=== PATIENT | female | born 1965 | race Two or more races ===

== ENCOUNTER 2016-06-05 11:31 | Inpatient (IN) | payer OTHER ==
[2016-06-05 12:38] VITALS: BMI 16.2
--- NOTE | 2016-06-05 14:13 | HP ---
Admission ROS S - [facility] Chief Complaint: I need help to stop using crack. Allergies/Adverse Reactions: Allergies Allergy/AdvReac Type Severity Reaction Status Date / Time cephalexin monohydrate Allergy Severe Hives Verified 06/05/16 14:02 [From Keflex] Fish Containing Products Allergy Severe Hives Verified 06/05/16 14:02 History of Present Illness: 51 y/o f pt on mmtp using crack daily needs rehab. Exam Limitations: No Limitations - Ebola screening Have you traveled outside of the country in the last 21 days: No Have you had contact with anyone from an Ebola affected area: No Have you been sick,other than usual withdrawal symptoms: No Do you have a fever: No - Review of Systems Constitutional: Weakness EENT: reports: Blurred Vision Respiratory: reports: No Symptoms reported Cardiac: reports: No Symptoms Reported GI: reports: No Symptoms Reported : reports: No Symptoms Reported Musculoskeletal: reports: No Symptoms Reported Integumentary: reports: No Symptoms Reported Neuro: reports: No Symptoms reported Endocrine: reports: No Symptoms Reported Hematology: reports: No Symptoms Reported Psychiatric: reports: No Sypmtoms Reported Other Systems: Reviewed and Negative Patient History - Patient Medical History Hx Anemia: No Hx Asthma: Yes Hx Chronic Obstructive Pulmonary Disease (COPD): No Hx Cancer: No Hx Cardiac Disorders: No Hx Congestive Heart Failure: No Hx Hypertension: No Hx Hypercholesterolemia: No Hx Pacemaker: No HX Cerebrovascular Accident: No Hx Seizures: No Hx Dementia: No Hx Diabetes: No Hx Gastrointestinal Disorders: No Hx Liver Disease: No Hx Genitourinary Disorders: No Hx Sexually Transmitted Disorders: No Hx Renal Disease (ESRD): No Hx Thyroid Disease: No Hx Human Immunodeficiency Virus (HIV): Yes (2008) Hx Hepatitis C: No Hx Depression: Yes Hx Suicide Attempt: Yes (X5 TIMES) Hx Bipolar Disorder: No Hx Schizophrenia: Yes - Patient Surgical History Past Surgical History: No Hx Neurologic Surgery: No Hx Cataract Extraction: No Hx Cardiac Surgery: No Hx Lung Surgery: No Hx Breast Surgery: No Hx Breast Biopsy: No Hx Abdominal Surgery: No Hx Appendectomy: No Hx Cholecystectomy: No Hx Genitourinary Surgery: No Hx Section: No Hx Orthopedic Surgery: No Hx Hysterectomy: No - PPD History Date: 01/05/16 - Reproductive History Patient is a Female of Child Bearing Age (11 -55 yrs old): Yes Last Menstrual Period: 12/22/15 Patient : No - Smoking Cessation Smoking history: Current every day smoker Have you smoked in the past 12 months: Yes Aproximately how many cigarettes per day: 10 Cigars Per Day: 0 Hx Chewing Tobacco Use: No Initiated information on smoking cessation: Yes 'Breaking Loose' booklet given: 06/05/16 - Substance & Tx. History Hx Alcohol Use: No Hx Substance Use: Yes Substance Use Type: Cocaine Hx Substance Use Treatment: Yes - Substances Abused Crack Route: Smoking Frequency: Daily Amount used: 12 bags /d Age of first use: 48 Date of Last Use: 06/05/16 Family Disease History - Family Disease History Family History: Denies Admission Physical Exam [facility] - Vital Signs Vital Signs: Vital Signs - 24 hr 06/05/16 12:33 Temperature 96 F L Pulse Rate 75 Respiratory 20 Rate Blood Pressure 119/74 4 y/o cachetic appearing f pt aox3 in nad cooperative with exam. - Physical General Appearance: Yes: Appropriately Dressed, Disheveled, Cachetic, Anxious HEENTM: Yes: EOMI, Hearing grossly Normal, RAN, Muffled/Hoarse Voice Respiratory: Yes: Chest Non-Tender, Lungs Clear, Normal Breath Sounds, No Respiratory Distress Neck: Yes: Supple, Trachea in good position Breast: Yes: Within Normal Limits Cardiology: Yes: Regular Rhythm, Regular Rate Abdominal: Yes: Non Tender, Flat, Soft, Increased Bowel Sounds Genitourinary: Yes: Within Normal Limits Back: Yes: Within Normal Limits Musculoskeletal: Yes: Within Normal Limits Extremities: Yes: Within Normal Limits Neurological: Yes: paper maker II-XII NML intact, Fully Oriented, Motor Strength 5/5, Normal Response Integumentary: Yes: Within Normal Limits Lymphatic: Yes: Within Normal Limits - Diagnostic (1) Asthma Current Visit: Yes Status: Chronic Qualifiers: Asthma severity: mild intermittent Asthma complication type: with status asthmaticus Qualified Code(s): J45.22 - Mild intermittent asthma with status asthmaticus (2) Cocaine dependence Current Visit: Yes Status: Chronic Qualifiers: Substance use status: uncomplicated Qualified Code(s): F14.20 - Cocaine dependence, uncomplicated (3) Depression Current Visit: Yes Status: Chronic Qualifiers: Depression Type: dysthymia Qualified Code(s): F34.1 - Dysthymic disorder (4) HIV (human immunodeficiency virus infection) Current Visit: Yes Status: Chronic Comment: not taking arv > 2 months (5) Methadone maintenance therapy patient Current Visit: Yes Status: Chronic Comment: 80 MG LAST DOSE 01/03/16, VERIFICATION PENDING (6) Nicotine dependence Current Visit: No Status: Chronic Qualifiers: Nicotine product type: cigarettes Substance use status: uncomplicated Qualified Code(s): F17.210 - Nicotine dependence, cigarettes, uncomplicated (7) Weight loss Current Visit: Yes Status: Chronic Cleared for Admission S - Detox or Rehab Claeared for Rehab Admission: Yes [facility] Breath Alcohol Content Breath Alcohol Content: 0 Urine Pregancy Test - Result Urine Test Results: Negative- NO Line Present Urine Drug Screen - Results Drug Screen Negative: No Urine Drug Screen Results: VIRY-Cocaine, MTD-Methadone, TCA-Tricyclic Antidepress
[2016-06-05] MEDS ORDERED: NICOTINE POLACRILEX 4 MG GUM BC PRN (14:21)
[2016-06-05] MEDS ORDERED: LOPERAMIDE HCL 2 MG CAPSULE PO PRN (14:21)
[2016-06-05] MEDS ORDERED: ACETAMINOPHEN 325 MG TABLET (FP) PO PRN (14:21)
[2016-06-05] MEDS ORDERED: guaiFENesin/D-METHORPHAN HB 10 ML UNIT-DOSE CUPS PO PRN (14:21)
[2016-06-05] MEDS ORDERED: P-EPHED 60MG/TRIPROLIDI 2.5MG TABLET PO PRN (14:21)
[2016-06-05] MEDS ORDERED: MAGNESIUM CITRATE 300 ML BOTTLE PO PRN (14:21)
[2016-06-05] MEDS ORDERED: IBUPROFEN 400 MG TABLET (FP) PO PRN (14:21)
[2016-06-05] MEDS ORDERED: MENTHOL/PHENOL 1 EACH UD MM PRN (14:21)
--- NOTE | 2016-06-05 15:31 | HP ---
Psychiatrist Admission - Data Date of interview: 06/05/16 Admission source: [facility] Identifying data: This is the second admission to [address] [place] [address] for this 51 yo H single female mother of 2 adults,residing in [facility],supported by [facility]. Medical History: HIV+,dx in 2011,BA. Psychiatric History: Patient is poor historian.Repots that she was dx with Bipolar disorder about 9 years ago.She reports 10-15 psychiatric hospitalizations mostly due to severe depression,drug usage,suicidal gestures.Patient reports most recent admission about 5 months ago to [facility] for depression,suicidal ideas.Follow up by psychiatrist at [facility].Current medications:Zoloft,Abilify,Klonopin and SEroquel po hs.She stopped her psychotropics a few weeks ago and willing to restart it now. Physical/Sexual Abuse/Trauma History: denies Vital Signs: Vital Signs - 24 hr 06/05/16 12:33 Temperature 96 F L Pulse Rate 75 Respiratory 20 Rate Blood Pressure 119/74 Allergies/Adverse Reactions: Allergies Allergy/AdvReac Type Severity Reaction Status Date / Time cephalexin monohydrate Allergy Severe Hives Verified 06/05/16 14:02 [From Keflex] Fish Containing Products Allergy Severe Hives Verified 06/05/16 14:02 Date of last physical exam: 06/05/16 Concur with the findings of this exam: Yes - Substance Abuse/Tx History Hx Alcohol Use: No Hx Substance Use: Yes (crack since 2014 about 10 bags daily,heroin since 1984( on MMTP 70 mg)) Substance Use Type: Cocaine, Heroin Hx Substance Use Treatment: Yes (completed this program in Jan 2016) - Admission Criteria Previous failed treatment: Yes Poor recovery environment: Yes Comorbidities: Yes Lacks judgement: Yes Mental Status Exam - Mental Status Exam Alert and Oriented to: Time, Place, Person Cognitive Function: Grossly Intact Patient Appearance: Unkempt Mood: Anxious Affect: Labile Patient Behavior: Cooperative Speech Pattern: Clear Voice Loudness: Normal Thought Process: Goal Oriented Thought Disorder: Present Hallucinations: Denies Suicidal Ideation: Denies Homicidal Ideation: Denies Insight/Judgement: Fair Sleep: Fair Appetite: Fair, Weight loss Muscle strength/Tone: Normal Gait/Station: Normal Psychiatric Findings - Problem List (Moran 1, 2,3) (1) Asthma Current Visit: Yes Status: Chronic Qualifiers: Asthma severity: mild intermittent Asthma complication type: with status asthmaticus Qualified Code(s): J45.22 - Mild intermittent asthma with status asthmaticus (2) Cocaine dependence Current Visit: Yes Status: Chronic Qualifiers: Substance use status: uncomplicated Qualified Code(s): F14.20 - Cocaine dependence, uncomplicated (3) HIV (human immunodeficiency virus infection) Current Visit: Yes Status: Chronic Comment: not taking arv > 2 months (4) Methadone maintenance therapy patient Current Visit: Yes Status: Chronic Comment: 80 MG LAST DOSE 01/03/16, VERIFICATION PENDING (5) Bipolar I disorder Current Visit: Yes Status: Chronic (6) Nicotine dependence Current Visit: Yes Status: Chronic Qualifiers: Nicotine product type: cigarettes Substance use status: uncomplicated Qualified Code(s): F17.210 - Nicotine dependence, cigarettes, uncomplicated - Initial Treatment Plan Initial Treatment Plan: Restart Zoloft 100 mg po daily,Seroquel 50 mg po hs and Abilify 30 mg po daily.Will monitor progress.
[2016-06-05 18:46] LABS: URINE APPEARANCE CLOUDY; URINE BILIRUBIN NEGATIVE (NEGATIVE); URINE BLOOD NEGATIVE (NEGATIVE); URINE COLOR YELLOW; URINE GLUCOSE (UA) NEGATIVE (NEGATIVE); URINE KETONE NEGATIVE (NEGATIVE); URINE LEUK ESTERASE NEGATIVE (NEGATIVE); URINE NITRITE NEGATIVE (NEGATIVE); URINE PROTEIN NEGATIVE (NEGATIVE); URINE UROBILINOGEN NEGATIVE E.U./dl (0.2-1.0)
[2016-06-05 18:47] LABS: MCH 29.5 pg (25.7-33.7); MCHC 33.5 g/dl (32.0-36.0); MEAN PLT VOLUME 9.3 fl (7.5-11.1); PLATELET COUNT 209 K/MM3 (134-434); RDW 16.7 % (11.6-15.6); WHITE BLOOD COUNT 3.9 K/mm3 (4.0-10.0)
[2016-06-05 19:11] LABS: ALBUMIN 2.9 g/dl (3.4-5.0); ANION GAP 6 (8-16); BILIRUBIN,TOTAL 0.1 mg/dL (0.2-1.0); CALCIUM 8.3 mg/dL (8.5-10.1); CO2 31 mmol/L (21-32); CREATININE 0.9 mg/dL (0.55-1.02); GLUCOSE,RANDOM 88 mg/dL (74-106); SGOT/AST 20 U/L (15-37); SGPT/ALT 26 U/L (12-78); TOT PROT 6.4 g/dl (6.4-8.2)
[2016-06-05 19:12] LABS: ALK PHOS 80 U/L (45-117)
[2016-06-05] MEDS: QUEtiapine FUMARATE 50 MG TABLET PO SCH (22:14)
[2016-06-05] MEDS: THIAMINE HCL 100 MG TABLET (FP) PO SCH (22:14)
[2016-06-06] MEDS ORDERED: METHADONE HCL 10 MG TABLET PO ONE (07:50)
[2016-06-06] MEDS ORDERED: METHADONE 40 MG, METHADONE 30 MG PO ONE (08:00)
[2016-06-06] MEDS ORDERED: METHADONE HCL 40 MG DISPERSABLE TABLET ONE (08:01)
[2016-06-06] MEDS ORDERED: METHADONE HCL 10 MG TABLET ONE (08:01)
[2016-06-06] MEDS: PRENATAL VITAMINS W/ FOLIC ACID TABLET (FP) PO SCH (10:25)
[2016-06-06] MEDS: NICOTINE 21 MG/24 HOURS TOPICAL PATCH TD SCH (10:26)
[2016-06-06 12:00] LABS: HIV 1 AGp24 NEGATIVE
--- NOTE | 2016-06-06 13:29 | PN ---
[facility] Progress Note Note: Pt. was on isentress & truvada but stopped taking it because she was not feeling well. We'll refer pt. back to her ID clinic for a change in HARRT.
[2016-06-06 14:13] LABS: HIV 1 & 2 AB PRELIMINARY POSITIVE
[2016-06-06] MEDS: MEGESTROL ACETATE 400 MG/10 ML UNIT DOSE CUP PO SCH (16:30)
[2016-06-06] MEDS: THIAMINE HCL 100 MG TABLET (FP) PO SCH (21:27)
[2016-06-06] MEDS: QUEtiapine FUMARATE 50 MG TABLET PO SCH (21:28)
[2016-06-07] MEDS ORDERED: METHADONE HCL 40 MG DISPERSABLE TABLET ONE (05:38)
[2016-06-07] MEDS ORDERED: METHADONE HCL 10 MG TABLET ONE (05:38)
[2016-06-07] MEDS ORDERED: METHADONE HCL 10 MG TABLET PO SCH ×2 (06:00)
[2016-06-07] MEDS: METHADONE 40 MG, METHADONE 30 MG PO SCH (06:56)
[2016-06-07] MEDS: MEGESTROL ACETATE 400 MG/10 ML UNIT DOSE CUP PO SCH ×2 (06:57→17:04)
[2016-06-07] MEDS: PRENATAL VITAMINS W/ FOLIC ACID TABLET (FP) PO SCH (10:20)
[2016-06-07] MEDS: NICOTINE 21 MG/24 HOURS TOPICAL PATCH TD SCH (10:20)
--- NOTE | 2016-06-07 13:51 | EKG ---
Test Reason : Blood Pressure : / mmHG Vent. Rate : 080 BPM Atrial Rate : 087 BPM P-R Int : 134 ms QRS Dur : 088 ms QT Int : 420 ms P-R-T Axes : 080 089 082 degrees QTc Int : 484 ms NORMAL SINUS RHYTHM WITH SINUS ARRHYTHMIA T WAVE ABNORMALITY, CONSIDER ANTERIOR ISCHEMIA PROLONGED QT ABNORMAL ECG NO PREVIOUS ECGS AVAILABLE Confirmed by GARO LOPEZ MD ([id number]) on 06/07/2016 1:51:21 PM Referred By: Vandana Del Toro Confirmed By:GARO LOPEZ MD
--- NOTE | 2016-06-07 15:00 | PN ---
[facility] Progress Note Note: Pt. has multiple excoriations from scratching P : Bactracin oin't qid
[2016-06-07] MEDS: SERTRALINE HCL 50 MG TABLET (FP) PO SCH (15:10)
[2016-06-07] MEDS: ARIPiprazole 15 MG TABLET PO SCH (15:10)
[2016-06-07] MEDS: BACITRACIN 0.9 GM PACKET TP SCH ×2 (17:04→21:27)
[2016-06-07] MEDS: THIAMINE HCL 100 MG TABLET (FP) PO SCH (21:27)
[2016-06-07] MEDS: QUEtiapine FUMARATE 50 MG TABLET PO SCH (21:28)
[2016-06-07] MEDS: DOCUSATE SODIUM 100 MG CAPSULE (FP) PO SCH (21:28)
[2016-06-08] MEDS ORDERED: METHADONE HCL 10 MG TABLET ONE (03:09)
[2016-06-08] MEDS ORDERED: METHADONE HCL 40 MG DISPERSABLE TABLET ONE (03:10)
[2016-06-08] MEDS: METHADONE 40 MG, METHADONE 30 MG PO SCH (06:35)
[2016-06-08] MEDS: MEGESTROL ACETATE 400 MG/10 ML UNIT DOSE CUP PO SCH ×2 (06:36→17:03)
[2016-06-08] MEDS: NICOTINE 21 MG/24 HOURS TOPICAL PATCH TD SCH (10:21)
[2016-06-08] MEDS: BACITRACIN 0.9 GM PACKET TP SCH ×4 (10:21→21:17)
[2016-06-08] MEDS: PRENATAL VITAMINS W/ FOLIC ACID TABLET (FP) PO SCH (10:21)
[2016-06-08] MEDS: DOCUSATE SODIUM 100 MG CAPSULE (FP) PO SCH ×2 (10:22→21:17)
[2016-06-08] MEDS: ARIPiprazole 15 MG TABLET PO SCH (10:22)
[2016-06-08] MEDS: SERTRALINE HCL 50 MG TABLET (FP) PO SCH (10:22)
[2016-06-08] MEDS: THIAMINE HCL 100 MG TABLET (FP) PO SCH (21:17)
[2016-06-08] MEDS: QUEtiapine FUMARATE 50 MG TABLET PO SCH (21:17)
[2016-06-09] MEDS ORDERED: METHADONE HCL 40 MG DISPERSABLE TABLET ONE (03:18)
[2016-06-09] MEDS ORDERED: METHADONE HCL 10 MG TABLET ONE (03:18)
[2016-06-09] MEDS: METHADONE 40 MG, METHADONE 30 MG PO SCH (06:15)
[2016-06-09] MEDS: MEGESTROL ACETATE 400 MG/10 ML UNIT DOSE CUP PO SCH ×2 (06:16→17:53)
[2016-06-09] MEDS: PRENATAL VITAMINS W/ FOLIC ACID TABLET (FP) PO SCH (10:10)
[2016-06-09] MEDS: ARIPiprazole 15 MG TABLET PO SCH (10:10)
[2016-06-09] MEDS: NICOTINE 21 MG/24 HOURS TOPICAL PATCH TD SCH (10:10)
[2016-06-09] MEDS: SERTRALINE HCL 50 MG TABLET (FP) PO SCH (10:10)
[2016-06-09] MEDS: BACITRACIN 0.9 GM PACKET TP SCH ×4 (10:10→21:20)
[2016-06-09] MEDS: DOCUSATE SODIUM 100 MG CAPSULE (FP) PO SCH ×2 (10:12→21:20)
[2016-06-09] MEDS ORDERED: diphenhydrAMINE HCL 25 MG CAPSULE (FP) PO PRN (15:41)
[2016-06-09] MEDS: MAGNESIUM HYDROX 2400MG/30ML ORAL SUSPENSION 30 ML CUP PO PRN (19:15)
[2016-06-09] MEDS: THIAMINE HCL 100 MG TABLET (FP) PO SCH (21:20)
[2016-06-09] MEDS: QUEtiapine FUMARATE 50 MG TABLET PO SCH (21:21)
[2016-06-10] MEDS ORDERED: METHADONE HCL 10 MG TABLET ONE (05:46)
[2016-06-10] MEDS ORDERED: METHADONE HCL 40 MG DISPERSABLE TABLET ONE (05:47)
[2016-06-10] MEDS: MEGESTROL ACETATE 400 MG/10 ML UNIT DOSE CUP PO SCH ×2 (06:42→17:17)
[2016-06-10] MEDS: METHADONE 40 MG, METHADONE 30 MG PO SCH (06:42)
[2016-06-10] MEDS: BACITRACIN 0.9 GM PACKET TP SCH ×4 (10:05→21:33)
[2016-06-10] MEDS: NICOTINE 21 MG/24 HOURS TOPICAL PATCH TD SCH (10:06)
[2016-06-10] MEDS: ARIPiprazole 15 MG TABLET PO SCH (10:06)
[2016-06-10] MEDS: PRENATAL VITAMINS W/ FOLIC ACID TABLET (FP) PO SCH (10:06)
[2016-06-10] MEDS: DOCUSATE SODIUM 100 MG CAPSULE (FP) PO SCH ×2 (10:06→21:33)
[2016-06-10] MEDS: SERTRALINE HCL 50 MG TABLET (FP) PO SCH (10:06)
[2016-06-10] MEDS: THIAMINE HCL 100 MG TABLET (FP) PO SCH (21:33)
[2016-06-10] MEDS: QUEtiapine FUMARATE 50 MG TABLET PO SCH (21:33)
[2016-06-10] MEDS: diphenhydrAMINE HCL 50 MG CAPSULE PO PRN (21:34)
[2016-06-11] MEDS ORDERED: METHADONE HCL 10 MG TABLET ONE (05:54)
[2016-06-11] MEDS ORDERED: METHADONE HCL 40 MG DISPERSABLE TABLET ONE (05:54)
[2016-06-11] MEDS: MEGESTROL ACETATE 400 MG/10 ML UNIT DOSE CUP PO SCH ×2 (06:33→16:30)
[2016-06-11] MEDS: METHADONE 40 MG, METHADONE 30 MG PO SCH (06:34)
[2016-06-11] MEDS: ARIPiprazole 15 MG TABLET PO SCH (10:09)
[2016-06-11] MEDS: PRENATAL VITAMINS W/ FOLIC ACID TABLET (FP) PO SCH (10:09)
[2016-06-11] MEDS: DOCUSATE SODIUM 100 MG CAPSULE (FP) PO SCH ×2 (10:09→21:19)
[2016-06-11] MEDS: SERTRALINE HCL 50 MG TABLET (FP) PO SCH (10:09)
[2016-06-11] MEDS: BACITRACIN 0.9 GM PACKET TP SCH ×4 (10:10→21:19)
[2016-06-11] MEDS: NICOTINE 21 MG/24 HOURS TOPICAL PATCH TD SCH (10:10)
[2016-06-11] MEDS: QUEtiapine FUMARATE 50 MG TABLET PO SCH (21:19)
[2016-06-11] MEDS: THIAMINE HCL 100 MG TABLET (FP) PO SCH (21:19)
[2016-06-11] MEDS: diphenhydrAMINE HCL 50 MG CAPSULE PO PRN (21:20)
[2016-06-12] MEDS ORDERED: METHADONE HCL 10 MG TABLET ONE (05:56)
[2016-06-12] MEDS ORDERED: METHADONE HCL 40 MG DISPERSABLE TABLET ONE (05:56)
[2016-06-12] MEDS: MEGESTROL ACETATE 400 MG/10 ML UNIT DOSE CUP PO SCH ×2 (06:45→17:13)
[2016-06-12] MEDS: METHADONE 40 MG, METHADONE 30 MG PO SCH (06:46)
[2016-06-12] MEDS ORDERED: PT OWN MED DRAWER 7, Y5N ONE (08:45)
[2016-06-12] MEDS: NICOTINE 21 MG/24 HOURS TOPICAL PATCH TD SCH (10:23)
[2016-06-12] MEDS: ARIPiprazole 15 MG TABLET PO SCH (10:23)
[2016-06-12] MEDS: PRENATAL VITAMINS W/ FOLIC ACID TABLET (FP) PO SCH (10:24)
[2016-06-12] MEDS: BACITRACIN 0.9 GM PACKET TP SCH ×4 (10:24→21:11)
[2016-06-12] MEDS: DOCUSATE SODIUM 100 MG CAPSULE (FP) PO SCH ×2 (10:24→21:11)
[2016-06-12] MEDS: SERTRALINE HCL 50 MG TABLET (FP) PO SCH (10:24)
[2016-06-12] MEDS: QUEtiapine FUMARATE 50 MG TABLET PO SCH (21:11)
[2016-06-12] MEDS: THIAMINE HCL 100 MG TABLET (FP) PO SCH (21:12)
[2016-06-12] MEDS: diphenhydrAMINE HCL 50 MG CAPSULE PO PRN (21:13)
[2016-06-13] MEDS ORDERED: METHADONE HCL 10 MG TABLET ONE (05:48)
[2016-06-13] MEDS ORDERED: METHADONE HCL 40 MG DISPERSABLE TABLET ONE (05:48)
[2016-06-13] MEDS: MEGESTROL ACETATE 400 MG/10 ML UNIT DOSE CUP PO SCH ×2 (06:14→16:58)
[2016-06-13] MEDS: METHADONE 40 MG, METHADONE 30 MG PO SCH (06:14)
[2016-06-13] MEDS: ARIPiprazole 15 MG TABLET PO SCH (10:05)
[2016-06-13] MEDS: SERTRALINE HCL 50 MG TABLET (FP) PO SCH (10:05)
[2016-06-13] MEDS: PRENATAL VITAMINS W/ FOLIC ACID TABLET (FP) PO SCH (10:05)
[2016-06-13] MEDS: BACITRACIN 0.9 GM PACKET TP SCH ×4 (10:05→21:24)
[2016-06-13] MEDS: DOCUSATE SODIUM 100 MG CAPSULE (FP) PO SCH ×2 (10:05→21:24)
[2016-06-13] MEDS: NICOTINE 21 MG/24 HOURS TOPICAL PATCH TD SCH (10:06)
[2016-06-13] MEDS: diphenhydrAMINE HCL 50 MG CAPSULE PO PRN (21:24)
[2016-06-13] MEDS: THIAMINE HCL 100 MG TABLET (FP) PO SCH (21:24)
[2016-06-13] MEDS: QUEtiapine FUMARATE 50 MG TABLET PO SCH (21:24)
[2016-06-14] MEDS ORDERED: METHADONE HCL 40 MG DISPERSABLE TABLET ONE (06:02)
[2016-06-14] MEDS ORDERED: METHADONE HCL 10 MG TABLET ONE (06:02)
[2016-06-14] MEDS: METHADONE 40 MG, METHADONE 30 MG PO SCH (06:35)
[2016-06-14] MEDS: MEGESTROL ACETATE 400 MG/10 ML UNIT DOSE CUP PO SCH ×2 (06:36→18:59)
[2016-06-14] MEDS: DOCUSATE SODIUM 100 MG CAPSULE (FP) PO SCH ×2 (10:52→21:24)
[2016-06-14] MEDS: BACITRACIN 0.9 GM PACKET TP SCH ×4 (10:52→21:24)
[2016-06-14] MEDS: SERTRALINE HCL 50 MG TABLET (FP) PO SCH (10:52)
[2016-06-14] MEDS: PRENATAL VITAMINS W/ FOLIC ACID TABLET (FP) PO SCH (10:52)
[2016-06-14] MEDS: ARIPiprazole 15 MG TABLET PO SCH (10:53)
[2016-06-14] MEDS: NICOTINE 21 MG/24 HOURS TOPICAL PATCH TD SCH (10:53)
[2016-06-14] MEDS: MAG HYDROX/AL HYDROX/SIMETH 30 ML UNIT-DOSE CUP PO PRN (13:45)
[2016-06-14] MEDS: QUEtiapine FUMARATE 50 MG TABLET PO SCH (21:24)
[2016-06-14] MEDS: THIAMINE HCL 100 MG TABLET (FP) PO SCH (21:24)
[2016-06-15] MEDS ORDERED: METHADONE HCL 40 MG DISPERSABLE TABLET ONE (03:13)
[2016-06-15] MEDS ORDERED: METHADONE HCL 10 MG TABLET ONE (03:13)
[2016-06-15] MEDS: METHADONE 40 MG, METHADONE 30 MG PO SCH (06:36)
[2016-06-15] MEDS: MEGESTROL ACETATE 400 MG/10 ML UNIT DOSE CUP PO SCH ×2 (06:37→18:30)
[2016-06-15] MEDS: ARIPiprazole 15 MG TABLET PO SCH (10:18)
[2016-06-15] MEDS: PRENATAL VITAMINS W/ FOLIC ACID TABLET (FP) PO SCH (10:18)
[2016-06-15] MEDS: BACITRACIN 0.9 GM PACKET TP SCH ×4 (10:18→21:21)
[2016-06-15] MEDS: DOCUSATE SODIUM 100 MG CAPSULE (FP) PO SCH ×2 (10:18→21:21)
[2016-06-15] MEDS: SERTRALINE HCL 50 MG TABLET (FP) PO SCH (10:18)
[2016-06-15] MEDS: NICOTINE 21 MG/24 HOURS TOPICAL PATCH TD SCH (10:18)
[2016-06-15] MEDS: THIAMINE HCL 100 MG TABLET (FP) PO SCH (21:21)
[2016-06-15] MEDS: QUEtiapine FUMARATE 50 MG TABLET PO SCH (21:21)
[2016-06-15] MEDS: diphenhydrAMINE HCL 50 MG CAPSULE PO PRN (21:22)
[2016-06-16] MEDS ORDERED: METHADONE HCL 10 MG TABLET ONE (05:56)
[2016-06-16] MEDS ORDERED: METHADONE HCL 40 MG DISPERSABLE TABLET ONE (05:57)
[2016-06-16] MEDS: MEGESTROL ACETATE 400 MG/10 ML UNIT DOSE CUP PO SCH ×2 (06:54→17:25)
[2016-06-16] MEDS: METHADONE 40 MG, METHADONE 30 MG PO SCH (06:55)
[2016-06-16] MEDS: BACITRACIN 0.9 GM PACKET TP SCH ×4 (10:30→21:30)
[2016-06-16] MEDS: NICOTINE 21 MG/24 HOURS TOPICAL PATCH TD SCH (10:30)
[2016-06-16] MEDS: SERTRALINE HCL 50 MG TABLET (FP) PO SCH (10:31)
[2016-06-16] MEDS: DOCUSATE SODIUM 100 MG CAPSULE (FP) PO SCH ×2 (10:31→21:30)
[2016-06-16] MEDS: ARIPiprazole 15 MG TABLET PO SCH (10:31)
[2016-06-16] MEDS: PRENATAL VITAMINS W/ FOLIC ACID TABLET (FP) PO SCH (10:32)
[2016-06-16] MEDS: THIAMINE HCL 100 MG TABLET (FP) PO SCH (21:30)
[2016-06-16] MEDS: QUEtiapine FUMARATE 50 MG TABLET PO SCH (21:30)
[2016-06-16] MEDS: diphenhydrAMINE HCL 50 MG CAPSULE PO PRN (21:31)
[2016-06-17] MEDS ORDERED: METHADONE HCL 10 MG TABLET ONE (03:19)
[2016-06-17] MEDS ORDERED: METHADONE HCL 40 MG DISPERSABLE TABLET ONE (03:19)
[2016-06-17] MEDS: METHADONE 40 MG, METHADONE 30 MG PO SCH (06:23)
[2016-06-17] MEDS: MEGESTROL ACETATE 400 MG/10 ML UNIT DOSE CUP PO SCH ×2 (06:24→17:04)
[2016-06-17] MEDS: NICOTINE 21 MG/24 HOURS TOPICAL PATCH TD SCH (09:52)
[2016-06-17] MEDS: BACITRACIN 0.9 GM PACKET TP SCH ×4 (09:52→21:51)
[2016-06-17] MEDS: ARIPiprazole 15 MG TABLET PO SCH (09:52)
[2016-06-17] MEDS: SERTRALINE HCL 50 MG TABLET (FP) PO SCH (09:53)
[2016-06-17] MEDS: PRENATAL VITAMINS W/ FOLIC ACID TABLET (FP) PO SCH (09:53)
[2016-06-17] MEDS: DOCUSATE SODIUM 100 MG CAPSULE (FP) PO SCH ×2 (09:53→21:51)
[2016-06-17] MEDS: THIAMINE HCL 100 MG TABLET (FP) PO SCH (21:51)
[2016-06-17] MEDS: diphenhydrAMINE HCL 50 MG CAPSULE PO PRN (21:51)
[2016-06-17] MEDS: QUEtiapine FUMARATE 50 MG TABLET PO SCH (21:51)
[2016-06-18] MEDS ORDERED: METHADONE HCL 10 MG TABLET ONE (03:46)
[2016-06-18] MEDS ORDERED: METHADONE HCL 40 MG DISPERSABLE TABLET ONE (03:46)
[2016-06-18] MEDS: METHADONE 40 MG, METHADONE 30 MG PO SCH (06:28)
[2016-06-18] MEDS: MEGESTROL ACETATE 400 MG/10 ML UNIT DOSE CUP PO SCH ×2 (06:29→16:55)
[2016-06-18] MEDS: PRENATAL VITAMINS W/ FOLIC ACID TABLET (FP) PO SCH (09:32)
[2016-06-18] MEDS: ARIPiprazole 15 MG TABLET PO SCH (09:32)
[2016-06-18] MEDS: SERTRALINE HCL 50 MG TABLET (FP) PO SCH (09:32)
[2016-06-18] MEDS: DOCUSATE SODIUM 100 MG CAPSULE (FP) PO SCH ×2 (09:32→21:15)
[2016-06-18] MEDS: BACITRACIN 0.9 GM PACKET TP SCH ×4 (09:33→21:16)
[2016-06-18] MEDS: NICOTINE 21 MG/24 HOURS TOPICAL PATCH TD SCH (09:33)
[2016-06-18] MEDS: THIAMINE HCL 100 MG TABLET (FP) PO SCH (21:15)
[2016-06-18] MEDS: QUEtiapine FUMARATE 50 MG TABLET PO SCH (21:15)
[2016-06-18] MEDS: diphenhydrAMINE HCL 50 MG CAPSULE PO PRN (21:16)
[2016-06-19] MEDS ORDERED: METHADONE HCL 10 MG TABLET ONE (03:11)
[2016-06-19] MEDS ORDERED: METHADONE HCL 40 MG DISPERSABLE TABLET ONE (03:11)
[2016-06-19] MEDS: METHADONE 40 MG, METHADONE 30 MG PO SCH (06:22)
[2016-06-19] MEDS: MEGESTROL ACETATE 400 MG/10 ML UNIT DOSE CUP PO SCH ×2 (06:23→17:40)
[2016-06-19] MEDS: BACITRACIN 0.9 GM PACKET TP SCH ×4 (09:55→21:23)
[2016-06-19] MEDS: PRENATAL VITAMINS W/ FOLIC ACID TABLET (FP) PO SCH (09:55)
[2016-06-19] MEDS: SERTRALINE HCL 50 MG TABLET (FP) PO SCH (09:55)
[2016-06-19] MEDS: DOCUSATE SODIUM 100 MG CAPSULE (FP) PO SCH ×2 (09:55→21:22)
[2016-06-19] MEDS: NICOTINE 21 MG/24 HOURS TOPICAL PATCH TD SCH (09:55)
[2016-06-19] MEDS: ARIPiprazole 15 MG TABLET PO SCH (09:55)
[2016-06-19] MEDS: diphenhydrAMINE HCL 50 MG CAPSULE PO PRN (21:22)
[2016-06-19] MEDS: QUEtiapine FUMARATE 50 MG TABLET PO SCH (21:22)
[2016-06-19] MEDS: THIAMINE HCL 100 MG TABLET (FP) PO SCH (21:22)
[2016-06-20] MEDS ORDERED: METHADONE HCL 10 MG TABLET ONE (06:02)
[2016-06-20] MEDS ORDERED: METHADONE HCL 40 MG DISPERSABLE TABLET ONE (06:02)
[2016-06-20] MEDS: MEGESTROL ACETATE 400 MG/10 ML UNIT DOSE CUP PO SCH ×2 (06:57→17:03)
[2016-06-20] MEDS: METHADONE 40 MG, METHADONE 30 MG PO SCH (06:57)
[2016-06-20] MEDS: BACITRACIN 0.9 GM PACKET TP SCH ×4 (10:09→22:19)
[2016-06-20] MEDS: ARIPiprazole 15 MG TABLET PO SCH (10:10)
[2016-06-20] MEDS: DOCUSATE SODIUM 100 MG CAPSULE (FP) PO SCH ×2 (10:10→21:13)
[2016-06-20] MEDS: SERTRALINE HCL 50 MG TABLET (FP) PO SCH (10:11)
[2016-06-20] MEDS: NICOTINE 21 MG/24 HOURS TOPICAL PATCH TD SCH (10:11)
[2016-06-20] MEDS: PRENATAL VITAMINS W/ FOLIC ACID TABLET (FP) PO SCH (10:11)
[2016-06-20] MEDS: QUEtiapine FUMARATE 50 MG TABLET PO SCH (21:13)
[2016-06-20] MEDS: THIAMINE HCL 100 MG TABLET (FP) PO SCH (21:13)
[2016-06-20] MEDS: diphenhydrAMINE HCL 50 MG CAPSULE PO PRN (21:13)
[2016-06-21] MEDS ORDERED: METHADONE HCL 40 MG DISPERSABLE TABLET ONE (03:41)
[2016-06-21] MEDS ORDERED: METHADONE HCL 10 MG TABLET ONE (03:41)
[2016-06-21] MEDS: MEGESTROL ACETATE 400 MG/10 ML UNIT DOSE CUP PO SCH ×2 (06:25→16:50)
[2016-06-21] MEDS: METHADONE 40 MG, METHADONE 30 MG PO SCH (06:26)
[2016-06-21] MEDS: NICOTINE 21 MG/24 HOURS TOPICAL PATCH TD SCH (10:12)
[2016-06-21] MEDS: DOCUSATE SODIUM 100 MG CAPSULE (FP) PO SCH ×2 (10:13→21:39)
[2016-06-21] MEDS: ARIPiprazole 15 MG TABLET PO SCH (10:13)
[2016-06-21] MEDS: PRENATAL VITAMINS W/ FOLIC ACID TABLET (FP) PO SCH (10:13)
[2016-06-21] MEDS: SERTRALINE HCL 50 MG TABLET (FP) PO SCH (10:13)
[2016-06-21] MEDS: BACITRACIN 0.9 GM PACKET TP SCH ×4 (10:14→21:39)
[2016-06-21] MEDS: MAG HYDROX/AL HYDROX/SIMETH 30 ML UNIT-DOSE CUP PO PRN (19:13)
[2016-06-21] MEDS: THIAMINE HCL 100 MG TABLET (FP) PO SCH (21:39)
[2016-06-21] MEDS: diphenhydrAMINE HCL 50 MG CAPSULE PO PRN (21:39)
[2016-06-21] MEDS: QUEtiapine FUMARATE 50 MG TABLET PO SCH (21:39)
[2016-06-22] MEDS ORDERED: METHADONE HCL 10 MG TABLET ONE (03:35)
[2016-06-22] MEDS ORDERED: METHADONE HCL 40 MG DISPERSABLE TABLET ONE (03:35)
[2016-06-22] MEDS: METHADONE 40 MG, METHADONE 30 MG PO SCH (06:22)
[2016-06-22] MEDS: MEGESTROL ACETATE 400 MG/10 ML UNIT DOSE CUP PO SCH ×2 (06:23→17:30)
[2016-06-22] MEDS: BACITRACIN 0.9 GM PACKET TP SCH ×4 (10:09→21:48)
[2016-06-22] MEDS: PRENATAL VITAMINS W/ FOLIC ACID TABLET (FP) PO SCH (10:09)
[2016-06-22] MEDS: SERTRALINE HCL 50 MG TABLET (FP) PO SCH (10:09)
[2016-06-22] MEDS: DOCUSATE SODIUM 100 MG CAPSULE (FP) PO SCH ×2 (10:10→22:45)
[2016-06-22] MEDS: NICOTINE 21 MG/24 HOURS TOPICAL PATCH TD SCH (10:10)
[2016-06-22] MEDS: ARIPiprazole 15 MG TABLET PO SCH (10:10)
[2016-06-22] MEDS: diphenhydrAMINE HCL 50 MG CAPSULE PO PRN (21:48)
[2016-06-22] MEDS: THIAMINE HCL 100 MG TABLET (FP) PO SCH (21:48)
[2016-06-22] MEDS: QUEtiapine FUMARATE 50 MG TABLET PO SCH (21:48)
[2016-06-23] MEDS ORDERED: METHADONE HCL 10 MG TABLET ONE (03:10)
[2016-06-23] MEDS ORDERED: METHADONE HCL 40 MG DISPERSABLE TABLET ONE (03:10)
[2016-06-23] MEDS: MEGESTROL ACETATE 400 MG/10 ML UNIT DOSE CUP PO SCH ×2 (06:31→17:09)
[2016-06-23] MEDS: METHADONE 40 MG, METHADONE 30 MG PO SCH (06:31)
[2016-06-23] MEDS: SERTRALINE HCL 50 MG TABLET (FP) PO SCH (10:28)
[2016-06-23] MEDS: DOCUSATE SODIUM 100 MG CAPSULE (FP) PO SCH ×2 (10:28→21:23)
[2016-06-23] MEDS: BACITRACIN 0.9 GM PACKET TP SCH ×4 (10:29→21:22)
[2016-06-23] MEDS: NICOTINE 21 MG/24 HOURS TOPICAL PATCH TD SCH (10:29)
[2016-06-23] MEDS: PRENATAL VITAMINS W/ FOLIC ACID TABLET (FP) PO SCH (10:29)
[2016-06-23] MEDS: ARIPiprazole 15 MG TABLET PO SCH (10:29)
[2016-06-23] MEDS: THIAMINE HCL 100 MG TABLET (FP) PO SCH (21:23)
[2016-06-23] MEDS: QUEtiapine FUMARATE 50 MG TABLET PO SCH (21:23)
[2016-06-24] MEDS ORDERED: METHADONE HCL 40 MG DISPERSABLE TABLET ONE (06:09)
[2016-06-24] MEDS ORDERED: METHADONE HCL 10 MG TABLET ONE (06:09)
[2016-06-24] MEDS: METHADONE 40 MG, METHADONE 30 MG PO SCH (06:10)
[2016-06-24] MEDS: MEGESTROL ACETATE 400 MG/10 ML UNIT DOSE CUP PO SCH ×2 (06:10→17:06)
[2016-06-24] MEDS: SERTRALINE HCL 50 MG TABLET (FP) PO SCH (10:05)
[2016-06-24] MEDS: PRENATAL VITAMINS W/ FOLIC ACID TABLET (FP) PO SCH (10:05)
[2016-06-24] MEDS: BACITRACIN 0.9 GM PACKET TP SCH ×4 (10:05→21:16)
[2016-06-24] MEDS: ARIPiprazole 15 MG TABLET PO SCH (10:05)
[2016-06-24] MEDS: DOCUSATE SODIUM 100 MG CAPSULE (FP) PO SCH ×2 (10:05→21:15)
[2016-06-24] MEDS: NICOTINE 21 MG/24 HOURS TOPICAL PATCH TD SCH (10:06)
[2016-06-24] MEDS: MAGNESIUM HYDROX 2400MG/30ML ORAL SUSPENSION 30 ML CUP PO PRN (19:08)
[2016-06-24] MEDS: THIAMINE HCL 100 MG TABLET (FP) PO SCH (21:15)
[2016-06-24] MEDS: QUEtiapine FUMARATE 50 MG TABLET PO SCH (21:15)
[2016-06-25] MEDS ORDERED: METHADONE HCL 10 MG TABLET ONE (05:45)
[2016-06-25] MEDS ORDERED: METHADONE HCL 40 MG DISPERSABLE TABLET ONE (05:45)
[2016-06-25] MEDS: METHADONE 40 MG, METHADONE 30 MG PO SCH (06:45)
[2016-06-25] MEDS: MEGESTROL ACETATE 400 MG/10 ML UNIT DOSE CUP PO SCH ×2 (06:45→16:33)
[2016-06-25] MEDS: ARIPiprazole 15 MG TABLET PO SCH (09:48)
[2016-06-25] MEDS: PRENATAL VITAMINS W/ FOLIC ACID TABLET (FP) PO SCH (09:48)
[2016-06-25] MEDS: NICOTINE 21 MG/24 HOURS TOPICAL PATCH TD SCH (09:48)
[2016-06-25] MEDS: SERTRALINE HCL 50 MG TABLET (FP) PO SCH (09:48)
[2016-06-25] MEDS: DOCUSATE SODIUM 100 MG CAPSULE (FP) PO SCH ×2 (09:48→21:12)
[2016-06-25] MEDS: BACITRACIN 0.9 GM PACKET TP SCH ×4 (09:49→21:14)
[2016-06-25] MEDS: THIAMINE HCL 100 MG TABLET (FP) PO SCH (21:12)
[2016-06-25] MEDS: QUEtiapine FUMARATE 50 MG TABLET PO SCH (21:12)
[2016-06-25] MEDS: diphenhydrAMINE HCL 50 MG CAPSULE PO PRN (21:13)
[2016-06-26] MEDS ORDERED: METHADONE 40 MG, METHADONE 30 MG PO SCH (06:00)
[2016-06-26] MEDS ORDERED: METHADONE HCL 10 MG TABLET ONE (06:19)
[2016-06-26] MEDS ORDERED: METHADONE HCL 40 MG DISPERSABLE TABLET ONE (06:20)
[2016-06-26] MEDS: MEGESTROL ACETATE 400 MG/10 ML UNIT DOSE CUP PO SCH (06:21)
[2016-06-26 07:08] VITALS: BP 121/72; PULSE 76; TEMP 98.5
[2016-06-26] MEDS: ARIPiprazole 15 MG TABLET PO SCH (09:16)
[2016-06-26] MEDS: SERTRALINE HCL 50 MG TABLET (FP) PO SCH (09:16)
[2016-06-26] MEDS: BACITRACIN 0.9 GM PACKET TP SCH (09:17)
[2016-06-26] MEDS: NICOTINE 21 MG/24 HOURS TOPICAL PATCH TD SCH (09:18)
[2016-06-26] MEDS: DOCUSATE SODIUM 100 MG CAPSULE (FP) PO SCH (09:18)
[2016-06-26] MEDS: PRENATAL VITAMINS W/ FOLIC ACID TABLET (FP) PO SCH (09:18)
--- NOTE | 2016-06-26 09:45 | PN ---
[id number] 76 121/72 Date of Session: 06/26/16 Chief Complaint:: Discharge visit HPI: Patient addressed Cocaine and Opioid dependnece comorbid with Bipolar disorder. ROS: Significant for HIV+, Current Side Effect: No Lab tests ordered: No Lab tests reviewed: Yes Provider note:: Patient completed this program today.She has met her treatment goals and will continue to address her issues on outpatient basis.Patient continues to find that current medications help to reduce her mood instability, sleeping difficulties.prescription for Seroquel 50 mg po hs for 30 days supply provided.Therapy provided focusing on relapse prevention,coping skills,support system utilization to maintain recovery. Total face to face time:: 30 Mental Status Exam - Mental Status Exam Alert and Oriented to: Time, Place, Person Cognitive Function: Grossly Intact Patient Appearance: Well Groomed Mood: Euthymic Affect: Mood Congruent Patient Behavior: Cooperative Speech Pattern: Clear Voice Loudness: Normal Thought Process: Goal Oriented Thought Disorder: Not Present Hallucinations: Denies Suicidal Ideation: Denies Homicidal Ideation: Denies Insight/Judgement: Fair Sleep: Fair Appetite: Fair Muscle strength/Tone: Normal Gait/Station: Normal Psychiatric Treatment Plan - Problem List (1) Asthma Qualifiers: Asthma severity: mild intermittent Asthma complication type: with status asthmaticus Qualified Code(s): J45.22 - Mild intermittent asthma with status asthmaticus (2) Cocaine dependence Qualifiers: Substance use status: uncomplicated Qualified Code(s): F14.20 - Cocaine dependence, uncomplicated (3) HIV (human immunodeficiency virus infection) Comment: not taking arv > 2 months (4) Methadone maintenance therapy patient Comment: 80 MG LAST DOSE 01/03/16, VERIFICATION PENDING (6) Nicotine dependence Qualifiers: Nicotine product type: cigarettes Substance use status: uncomplicated Qualified Code(s): F17.210 - Nicotine dependence, cigarettes, uncomplicated
== END 2016-06-26 09:20 | disposition home or self-care (01) | DRG 772 ==
LOC: YASAS 11:31 → Y3E 14:36
PROVIDERS: ADMIT Psychiatry & Neurology Psychiatry; ATTEND Psychiatry & Neurology Psychiatry
PROC: HZ42ZZZ Group Counseling for Substance Abuse Treatment, Cognitive-Behavioral (ICD-10-PCS; principal; 2016-06-26)
DX: F11.20 Opioid dependence, uncomplicated (principal); F14.20 Cocaine dependence, uncomplicated; F17.210 Nicotine dependence, cigarettes, uncomplicated; F34.1 Dysthymic disorder; F31.9 Bipolar disorder, unspecified; J45.22 Mild intermittent asthma with status asthmaticus; Z21 Asymptomatic human immunodeficiency virus [HIV] infection status; R63.4 Abnormal weight loss; Z68.1 Body mass index [BMI] 19.9 or less, adult
CPT/HCPCS: 36415; 80053; 81003; 85027; 86593; 87389; 93005; 93010

== ENCOUNTER 2019-01-21 16:46 | Inpatient (IN) | payer OTHER ==
[2019-01-21 18:04] VITALS: BMI 19.9
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
[2019-01-21] MEDS ORDERED: ONDANSETRON *ODT* 4 MG TABLET SL PRN (21:22)
[2019-01-21] MEDS ORDERED: MAGNESIUM HYDROX 2400MG/30ML ORAL SUSPENSION 30 ML CUP PO PRN (21:22)
[2019-01-21] MEDS ORDERED: DICYCLOMINE HCL 10 MG CAPSULE PO PRN (21:22)
[2019-01-21] MEDS ORDERED: hydrOXYzine PAMOATE 25 MG CAPSULE (FP) PO PRN (21:22)
[2019-01-21] MEDS ORDERED: IBUPROFEN 400 MG TABLET (FP) PO PRN (21:22)
[2019-01-21] MEDS ORDERED: P-EPHED 60MG/TRIPROLIDI 2.5MG TABLET PO PRN (21:22)
[2019-01-21] MEDS ORDERED: guaiFENesin 200 MG/10 ML 10 ML UNIT-DOSE CUPS PO PRN (21:22)
[2019-01-21] MEDS ORDERED: ALBUTEROL SO4 8 GM HFA INHALER IH PRN (21:22)
[2019-01-21] MEDS ORDERED: chlordiazePOXIDE HCL 25 MG CAPSULE PO PRN (21:22)
[2019-01-21] MEDS ORDERED: BISMUTH SUBSALICYLATE 524 MG/30 ML UD PO PRN (21:22)
[2019-01-21] MEDS ORDERED: MAGNESIUM CITRATE 300 ML BOTTLE PO PRN (21:22)
[2019-01-21] MEDS ORDERED: ACETAMINOPHEN 325 MG TABLET (FP) PO PRN ×2 (21:22)
[2019-01-21] MEDS ORDERED: MENTHOL/PHENOL 1 EACH UD MM PRN (21:22)
[2019-01-21] MEDS ORDERED: MAG HYDROX/AL HYDROX/SIMETH 30 ML UNIT-DOSE CUP PO PRN (21:22)
[2019-01-21] MEDS ORDERED: NICOTINE POLACRILEX 2 MG GUM BUC PRN (21:22)
[2019-01-21] MEDS ORDERED: METHOCARBAMOL 500 MG TABLET PO PRN (21:22)
[2019-01-21] MEDS: chlordiazePOXIDE HCL 25 MG CAPSULE PO SCH (22:37)
[2019-01-21] MEDS: MELATONIN 5 MG TABLETS PO PRN (22:37)
[2019-01-21] MEDS: THIAMINE HCL 100 MG TABLET (FP) PO SCH (22:37)
[2019-01-22] MEDS: chlordiazePOXIDE HCL 25 MG CAPSULE PO SCH ×4 (05:46→22:13)
[2019-01-22] MEDS: BUPRENORPHINE/NALOXONE 8 MG/2 MG FILM PACKET SL SCH (10:36)
[2019-01-22] MEDS: NICOTINE 14 MG/24 HOURS TOPICAL PATCH TD SCH (10:37)
[2019-01-22] MEDS: PRENATAL VITAMINS W/ FOLIC ACID TABLET (FP) PO SCH (10:37)
--- NOTE | 2019-01-22 11:20 | PN ---
[facility] CIWA - CIWA Score Nausea/Vomitin-No Nausea/No Vomiting Muscle Tremors: None Anxiety: 5 Agitation: 3 Paroxysmal Sweats: 3 Orientation: 0-Oriented Tacttile Disturbances: 2-Mild Itch/Numbness/Burn Auditory Disturbances: 0-None Visual Disturbances: 3-Moderate Sensitivity Headache: 0-None Present CIWA-Ar Total Score: 16 S Progress Note (SOAP) Subjective: Anxious, Restless, Sweating, Body Aches. Objective: PATIENT A & O X 3, OBSERVED AMBULATING ON DETOX UNIT UNASSISTED. 01/22/19 11:20 Vital Signs Temperature 96.4 F L 01/22/19 09:24 Pulse Rate 58 L 01/22/19 09:24 Respiratory Rate 16 01/22/19 09:24 Blood Pressure 85/60 L 01/22/19 09:24 O2 Sat by Pulse Oximetry (%) RESULTS OF DETOX ADMISSION LABS PENDING. 01/22/19 11:22 Assessment: 01/22/19 11:22 WITHDRAWAL SYMPTOMS. Plan: CONTINUE DETOX.
[2019-01-22 12:06] LABS: HEMATOCRIT 33.5 % (32.4-45.2); HEMOGLOBIN 11.1 GM/dL (10.7-15.3); MCH 30.1 pg (25.7-33.7); MCHC 33.2 g/dl (32.0-36.0); MEAN CELL VOLUME 90.5 fl (80-96); MEAN PLT VOLUME 9.7 fl (7.5-11.1); PLATELET COUNT 180 K/MM3 (134-434); RDW 13.2 % (11.6-15.6); WHITE BLOOD COUNT 3.3 K/mm3 (4.0-10.0)
[2019-01-22 12:17] LABS: ALBUMIN 3.3 g/dl (3.4-5.0); BILIRUBIN,TOTAL 0.3 mg/dL (0.2-1); BLOOD UREA NITROGEN 16.1 mg/dL (7-18); CALCIUM 8.6 mg/dL (8.5-10.1); CREATININE 0.9 mg/dL (0.55-1.3); TOT PROT 6.5 g/dl (6.4-8.2)
--- NOTE | 2019-01-22 15:06 | PN ---
[facility] Progress Note Note: MS. LOYA REPORTS THAT SHE HAD UNPLEASANT SEXUAL ENCOUNTER WITH ANOTHER PATIENT WHOM SHE CLAIMS TO ALSO CURRENTLY BE ON THE DETOX UNIT. MS. LOYA DECLINES TO REVEAL IDENTITY OF OTHER PATIENT IN QUESTION TO CREPING MACHINE OPERATOR. AFTER MULTI-DISCLIPLINARY CONFERENCE WITH CREPING MACHINE OPERATOR, CORPORATE SALES REPRESENTATIVE, RN, AND CASE BUILDING ENGINEER, DETERMINATION MADE TO TRANSFER PATIENT TO ANOTHER DETOX UNIT ([address] [place] [address]) FOR SAFETY. Jorge BARAHONA NP
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
[2019-01-22] MEDS: PRAZOSIN HCL 1 MG CAPSULE PO SCH (22:13)
[2019-01-22] MEDS: QUEtiapine FUMARATE 25 MG TABLET (FP) PO SCH (22:13)
[2019-01-22] MEDS: THIAMINE HCL 100 MG TABLET (FP) PO SCH (22:14)
[2019-01-23] MEDS: chlordiazePOXIDE HCL 25 MG CAPSULE PO SCH ×4 (05:44→22:30)
[2019-01-23] MEDS: PRENATAL VITAMINS W/ FOLIC ACID TABLET (FP) PO SCH (11:14)
[2019-01-23] MEDS: NICOTINE 14 MG/24 HOURS TOPICAL PATCH TD SCH (11:15)
[2019-01-23] MEDS: BUPRENORPHINE/NALOXONE 8 MG/2 MG FILM PACKET SL SCH (11:15)
--- NOTE | 2019-01-23 11:26 | PN ---
[facility] CIWA - CIWA Score Nausea/Vomitin-No Nausea/No Vomiting Muscle Tremors: 2 Anxiety: 3 Agitation: 3 Paroxysmal Sweats: 2 Orientation: 0-Oriented Tacttile Disturbances: 0-None Auditory Disturbances: 0-None Visual Disturbances: 0-None Headache: 0-None Present CIWA-Ar Total Score: 10 S Progress Note (SOAP) Subjective: sweats tired body aches interrupted sleep Objective: 01/23/19 11:27 Vital Signs Temperature 96.8 F L 01/23/19 10:00 Pulse Rate 75 01/23/19 10:00 Respiratory Rate 16 01/23/19 10:00 Blood Pressure 88/44 L 01/23/19 10:00 O2 Sat by Pulse Oximetry (%) Laboratory Tests 01/22/19 01/22/19 08:20 08:20 WBC 3.3 L RBC 3.70 Hgb 11.1 Hct 33.5 MCV 90.5 MCH 30.1 MCHC 33.2 RDW 13.2 D Plt Count 180 MPV 9.7 Sodium 142 Potassium 4.0 Chloride 108 H Carbon Dioxide 30 Anion Gap 4 L BUN 16.1 Creatinine 0.9 Est GFR (CKD-EPI)AfAm 84.01 Est GFR (CKD-EPI)NonAf 72.49 Random Glucose 79 Calcium 8.6 Total Bilirubin 0.3 AST 22 ALT 20 Alkaline Phosphatase 90 Total Protein 6.5 Albumin 3.3 L labs pending aaox3 ambulating no acute distress Assessment: 01/23/19 11:28 withdrawal sx Plan: continue detox increase fluids
[2019-01-23] MEDS: PATIENT'S OWN MEDICATION (NON-FORMULARY) (Emtricitabine/Tenofovir [Truvada -] 1 TAB) PO SCH (16:11)
[2019-01-23] MEDS: OFLOXACIN 0.3% OU SCH (18:19)
[2019-01-23] MEDS: QUEtiapine FUMARATE 25 MG TABLET (FP) PO SCH (22:28)
[2019-01-23] MEDS: PRAZOSIN HCL 1 MG CAPSULE PO SCH (22:28)
[2019-01-23] MEDS: RALTEGRAVIR POTASSIUM 400 MG TAB PO SCH (22:28)
[2019-01-23] MEDS: THIAMINE HCL 100 MG TABLET (FP) PO SCH (22:28)
[2019-01-23] MEDS: ERYTHROMYCIN 0.5% OPHTHALMIC OINTMENT 3.5 GM TUBE OU SCH (23:15)
[2019-01-24] MEDS ORDERED: chlordiazePOXIDE HCL 10 MG CAPSULE PO PRN
[2019-01-24] MEDS: OFLOXACIN 0.3% OU SCH ×4 (03:02→22:17)
[2019-01-24] MEDS: chlordiazePOXIDE HCL 10 MG CAPSULE PO SCH ×4 (05:50→22:16)
[2019-01-24] MEDS: PRENATAL VITAMINS W/ FOLIC ACID TABLET (FP) PO SCH (10:38)
[2019-01-24] MEDS: PATIENT'S OWN MEDICATION (NON-FORMULARY) (Emtricitabine/Tenofovir [Truvada -] 1 TAB) PO SCH (10:38)
[2019-01-24] MEDS: NICOTINE 14 MG/24 HOURS TOPICAL PATCH TD SCH (10:38)
[2019-01-24] MEDS: BUPRENORPHINE/NALOXONE 8 MG/2 MG FILM PACKET SL SCH (10:39)
[2019-01-24] MEDS: RALTEGRAVIR POTASSIUM 400 MG TAB PO SCH ×2 (10:39→22:15)
--- NOTE | 2019-01-24 13:59 | PN ---
S CIWA - CIWA Score Nausea/Vomitin-No Nausea/No Vomiting Muscle Tremors: 2 Anxiety: 2 Agitation: 3 Paroxysmal Sweats: 2 Orientation: 0-Oriented Tacttile Disturbances: 0-None Auditory Disturbances: 0-None Visual Disturbances: 0-None Headache: 0-None Present CIWA-Ar Total Score: 9 BHS Progress Note (SOAP) Subjective: sweats agitation anxiety body aches Objective: 01/24/19 13:59 Vital Signs Temperature 98.2 F 01/24/19 09:52 Pulse Rate 93 H 01/24/19 09:52 Respiratory Rate 18 01/24/19 09:52 Blood Pressure 94/66 01/24/19 09:52 O2 Sat by Pulse Oximetry (%) Laboratory Tests 01/22/19 01/22/19 01/22/19 08:20 08:20 08:20 WBC 3.3 L RBC 3.70 Hgb 11.1 Hct 33.5 MCV 90.5 MCH 30.1 MCHC 33.2 RDW 13.2 D Plt Count 180 MPV 9.7 Sodium 142 Potassium 4.0 Chloride 108 H Carbon Dioxide 30 Anion Gap 4 L BUN 16.1 Creatinine 0.9 Est GFR (CKD-EPI)AfAm 84.01 Est GFR (CKD-EPI)NonAf 72.49 Random Glucose 79 Calcium 8.6 Total Bilirubin 0.3 AST 22 ALT 20 Alkaline Phosphatase 90 Total Protein 6.5 Albumin 3.3 L RPR Titer Nonreactive labs noted aaox3 ambulating no acute distress Assessment: 01/24/19 13:59 mild withdrawal sx Plan: continue detox
[2019-01-24] MEDS: THIAMINE HCL 100 MG TABLET (FP) PO SCH (22:16)
[2019-01-24] MEDS: QUEtiapine FUMARATE 25 MG TABLET (FP) PO SCH (22:16)
[2019-01-24] MEDS: MELATONIN 5 MG TABLETS PO PRN (22:16)
[2019-01-24] MEDS: ERYTHROMYCIN 0.5% OPHTHALMIC OINTMENT 3.5 GM TUBE OU SCH (22:16)
--- NOTE | 2019-01-24 22:19 | EKG ---
Test Reason : Blood Pressure : / mmHG Vent. Rate : 063 BPM Atrial Rate : 063 BPM P-R Int : 138 ms QRS Dur : 096 ms QT Int : 432 ms P-R-T Axes : 071 086 071 degrees QTc Int : 442 ms NORMAL SINUS RHYTHM MINIMAL VOLTAGE CRITERIA FOR LVH, MAY BE NORMAL VARIANT T WAVE ABNORMALITY, CONSIDER ANTERIOR ISCHEMIA ABNORMAL ECG WHEN COMPARED WITH ECG OF 06-JUN-2016 18:14, NO SIGNIFICANT CHANGE WAS FOUND Confirmed by MD LAURA, MEGAN ([id number]) on 01/24/2019 10:19:06 PM Referred By: Galdino Lezama Confirmed By:MEGAN SANCHEZ MD
[2019-01-24] MEDS: PRAZOSIN HCL 1 MG CAPSULE PO SCH (23:17)
[2019-01-25] MEDS: OFLOXACIN 0.3% OU SCH ×4 (03:52→18:53)
[2019-01-25] MEDS: chlordiazePOXIDE HCL 10 MG CAPSULE PO SCH ×2 (07:28→17:24)
[2019-01-25] MEDS: PATIENT'S OWN MEDICATION (NON-FORMULARY) (Emtricitabine/Tenofovir [Truvada -] 1 TAB) PO SCH (10:16)
[2019-01-25] MEDS: RALTEGRAVIR POTASSIUM 400 MG TAB PO SCH ×2 (10:16→22:18)
[2019-01-25] MEDS: NICOTINE 14 MG/24 HOURS TOPICAL PATCH TD SCH (10:16)
[2019-01-25] MEDS: PRENATAL VITAMINS W/ FOLIC ACID TABLET (FP) PO SCH (10:17)
[2019-01-25] MEDS: BUPRENORPHINE/NALOXONE 8 MG/2 MG FILM PACKET SL SCH (10:17)
--- NOTE | 2019-01-25 12:45 | PN ---
S CIWA - CIWA Score Nausea/Vomitin-No Nausea/No Vomiting Muscle Tremors: None Anxiety: 2 Agitation: 0-Normal Activity Paroxysmal Sweats: 2 Orientation: 0-Oriented Tacttile Disturbances: 0-None Auditory Disturbances: 0-None Visual Disturbances: 0-None Headache: 1-Very Mild CIWA-Ar Total Score: 5 BHS Progress Note (SOAP) Subjective: c/o sweats, anxiety, and mild headache. Objective: 01/25/19 12:44 Vital Signs 01/25/19 01/25/19 01/25/19 06:00 09:47 12:35 Temperature 97.5 F L 97.7 F 98.1 F Pulse Rate 73 77 74 Respiratory 18 16 18 Rate Blood Pressure 82/47 L 90/69 94/58 L Lab Results WBC 3.3 K/mm3 (4.0-10.0) L 01/22/19 08:20 RBC 3.70 M/mm3 (3.60-5.2) 01/22/19 08:20 Hgb 11.1 GM/dL (10.7-15.3) 01/22/19 08:20 Hct 33.5 % (32.4-45.2) 01/22/19 08:20 MCV 90.5 fl (80-96) 01/22/19 08:20 MCHC 33.2 g/dl (32.0-36.0) 01/22/19 08:20 RDW 13.2 % (11.6-15.6) D 01/22/19 08:20 Plt Count 180 K/MM3 (134-434) 01/22/19 08:20 Sodium 142 mmol/L (136-145) 01/22/19 08:20 Potassium 4.0 mmol/L (3.5-5.1) 01/22/19 08:20 Chloride 108 mmol/L (98-107) H 01/22/19 08:20 Carbon Dioxide 30 mmol/L (21-32) 01/22/19 08:20 Anion Gap 4 MMOL/L (8-16) L 01/22/19 08:20 BUN 16.1 mg/dL (7-18) 01/22/19 08:20 Creatinine 0.9 mg/dL (0.55-1.3) 01/22/19 08:20 Random Glucose 79 mg/dL (74-106) 01/22/19 08:20 Calcium 8.6 mg/dL (8.5-10.1) 01/22/19 08:20 Labs noted. Assessment: 01/25/19 12:44 AOX3, in no acute respiratory distress. Full ROM, ambulating in the unit. Withdrawal symptoms. For d/c tomorrow. Plan: continue detox. D/C in AM.
[2019-01-25] MEDS: THIAMINE HCL 100 MG TABLET (FP) PO SCH (22:19)
[2019-01-25] MEDS: PRAZOSIN HCL 1 MG CAPSULE PO SCH (22:19)
[2019-01-25] MEDS: QUEtiapine FUMARATE 25 MG TABLET (FP) PO SCH (22:19)
[2019-01-25] MEDS: ERYTHROMYCIN 0.5% OPHTHALMIC OINTMENT 3.5 GM TUBE OU SCH (22:21)
[2019-01-26] MEDS: OFLOXACIN 0.3% OU SCH ×2 (04:05→06:01)
[2019-01-26] MEDS ORDERED: chlordiazePOXIDE HCL 10 MG CAPSULE PO ONE (05:00)
[2019-01-26 09:48] VITALS: BP 98/61; PULSE 86; TEMP 98.4
[2019-01-26] MEDS: RALTEGRAVIR POTASSIUM 400 MG TAB PO SCH (10:34)
[2019-01-26] MEDS: BUPRENORPHINE/NALOXONE 8 MG/2 MG FILM PACKET SL SCH (10:34)
[2019-01-26] MEDS: PRENATAL VITAMINS W/ FOLIC ACID TABLET (FP) PO SCH (10:34)
[2019-01-26] MEDS: NICOTINE 14 MG/24 HOURS TOPICAL PATCH TD SCH (10:34)
[2019-01-26] MEDS: PATIENT'S OWN MEDICATION (NON-FORMULARY) (Emtricitabine/Tenofovir [Truvada -] 1 TAB) PO SCH (10:34)
--- NOTE | 2019-01-26 17:32 | DS ---
[facility] Detox Discharge Summary Admission Date: 01/21/19 Discharge Date: 01/26/19 - History Present History: Alcohol Dependence, Cocaine Dependence, Opioid Dependence, MMTP Additional Comments: Patient completed detox successfully and discharged safely. Instructed to follow up with PCP within 1-2 weeks. Pertinent Past History: Asthma HIV - Physical Exam Results Vital Signs: Vital Signs Temperature 98.4 F 01/26/19 09:47 Pulse Rate 86 01/26/19 09:47 Respiratory Rate 16 01/26/19 09:47 Blood Pressure 98/61 01/26/19 09:47 O2 Sat by Pulse Oximetry (%) Pertinent Admission Physical Exam Findings: Withdrawal sxs Laboratory Tests 01/22/19 01/22/19 01/22/19 08:20 08:20 08:20 WBC 3.3 L RBC 3.70 Hgb 11.1 Hct 33.5 MCV 90.5 MCH 30.1 MCHC 33.2 RDW 13.2 D Plt Count 180 MPV 9.7 Sodium 142 Potassium 4.0 Chloride 108 H Carbon Dioxide 30 Anion Gap 4 L BUN 16.1 Creatinine 0.9 Est GFR (CKD-EPI)AfAm 84.01 Est GFR (CKD-EPI)NonAf 72.49 Random Glucose 79 Calcium 8.6 Total Bilirubin 0.3 AST 22 ALT 20 Alkaline Phosphatase 90 Total Protein 6.5 Albumin 3.3 L RPR Titer Nonreactive Labs reviewed - Treatment Hospital Course: Detox Protocol Followed, Detoxed Safely, Responded well, Discharged Condition Good - Medication Discharge Medications: Ambulatory Orders Albuterol Sulfate Inhaler - [Ventolin HFA Inhaler -] 2 inh IH Q4H PRN #0 Emtricitabine/Tenofovir [Truvada -] 1 tab PO DAILY #30 tablet 06/23/16 Buprenorphine HCl/Naloxone HCl [Suboxone 8 mg-2 mg Sl Tablets] 8 SL DAILY Isentress 01/21/19 - Diagnosis (1) Alcohol dependence with withdrawal, uncomplicated Status: Acute (2) Anxiety and depression Status: Chronic (3) Opioid dependence on agonist therapy Status: Acute (4) Asthma Status: Chronic Qualifiers: Asthma severity: mild intermittent Asthma complication type: with status asthmaticus Qualified Code(s): J45.22 - Mild intermittent asthma with status asthmaticus (5) Cocaine dependence Status: Chronic Qualifiers: Substance use status: uncomplicated Qualified Code(s): F14.20 - Cocaine dependence, uncomplicated (6) Depression Status: Chronic Qualifiers: Depression Type: dysthymia Qualified Code(s): F34.1 - Dysthymic disorder (7) HIV (human immunodeficiency virus infection) Status: Chronic - AMA Did Patient Leave Against Medical Advice: No (Follow up with PCP within 1-2 weeks)
== END 2019-01-26 11:04 | disposition home or self-care (01) | DRG 773 ==
LOC: YASAS 16:46 → Y3N 21:53 → Y6N 01-22 14:45
PROVIDERS: ADMIT Allergy & Immunology; ATTEND Allergy & Immunology
PROC: HZ2ZZZZ Detoxification Services for Substance Abuse Treatment (ICD-10-PCS; principal; 2019-01-21)
DX: F10.230 Alcohol dependence with withdrawal, uncomplicated (principal); F11.20 Opioid dependence, uncomplicated; F14.20 Cocaine dependence, uncomplicated; F31.9 Bipolar disorder, unspecified; F19.282 Other psychoactive substance dependence with psychoactive substance-induced sleep disorder; F41.8 Other specified anxiety disorders; F43.10 Post-traumatic stress disorder, unspecified; F32.9 Major depressive disorder, single episode, unspecified; Z88.1 Allergy status to other antibiotic agents; Z91.013 Allergy to seafood; Z91.5 Personal history of self-harm
CPT/HCPCS: 36415; 80053; 85027; 86593; 93005; 93010

== ENCOUNTER 2022-05-31 12:03 | Inpatient (IN) | payer OTHER ==
[2022-05-31 12:24] VITALS: BMI 17.2
[2022-05-31] MEDS ORDERED: MAG HYDROX/AL HYDROX/SIMETH 30 ML UNIT-DOSE CUP PO PRN (13:28)
[2022-05-31] MEDS ORDERED: hydrOXYzine PAMOATE 25 MG CAPSULE (FP) PO PRN (13:28)
[2022-05-31] MEDS ORDERED: BENZOCAINE/MENTHOL (CHLORASEPTIC ) LOZENGE MM PRN (13:28)
[2022-05-31] MEDS ORDERED: LOPERAMIDE HCL 2 MG CAPSULE PO PRN (13:28)
[2022-05-31] MEDS ORDERED: P-EPHED 60MG/TRIPROLIDI 2.5MG TABLET PO PRN (13:28)
[2022-05-31] MEDS ORDERED: POLYETHYLENE GLYCOL (HEALTHYLAX) 3350 17 GM PACKET PO PRN (13:28)
[2022-05-31] MEDS ORDERED: NALOXONE HCL (KLOXXADO) 8 MG SPRAY NS PRN (13:28)
[2022-05-31] MEDS ORDERED: guaiFENesin 200 MG/10 ML 10 ML UNIT-DOSE CUPS PO PRN (13:28)
[2022-05-31] MEDS ORDERED: NICOTINE POLACRILEX 2 MG GUM BC PRN (13:28)
[2022-05-31] MEDS ORDERED: ALBUTEROL SO4 HFA INHALER IH PRN (13:35)
[2022-05-31 16:44] LABS: HEMOGLOBIN 12.3 GM/dL (10.7-15.3); MCH 30.7 pg (25.7-33.7); MCHC 34.3 g/dl (32.0-36.0); MEAN CELL VOLUME 89.6 fl (80-96); MEAN PLT VOLUME 8.6 fl (7.5-11.1); PLATELET COUNT 198 10^3/uL (134-434); RBC 4.02 M/mm3 (3.60-5.2); RDW 14.2 % (11.6-15.6); WHITE BLOOD COUNT 3.1 K/mm3 (4.0-10.0)
[2022-05-31 16:46] LABS: CALCIUM 8.9 mg/dL (8.5-10.1)
[2022-05-31 16:47] LABS: ALBUMIN 3.2 g/dl (3.4-5.0); BLOOD UREA NITROGEN 6.2 mg/dL (7-18)
[2022-05-31 16:50] LABS: CREATININE 0.9 mg/dL (0.55-1.3)
[2022-05-31 16:51] LABS: TOT PROT 6.5 g/dl (6.4-8.2)
[2022-05-31 16:52] LABS: BILIRUBIN,TOTAL 0.3 mg/dL (0.2-1)
[2022-05-31 17:12] LABS: SYPHILIS W/ RPR CONF NON-REACTIVE (NONREACTIVE)
[2022-05-31] MEDS: NICOTINE 14 MG/24 HOURS TOPICAL PATCH TD SCH (17:25)
[2022-05-31] MEDS: MELATONIN 5 MG TABLETS PO SCH (21:38)
[2022-05-31] MEDS: SENNOSIDES 8.6MG TABLET (FP) PO SCH (21:38)
[2022-05-31] MEDS: THIAMINE HCL 100 MG TABLET (FP) PO SCH (21:38)
[2022-05-31] MEDS: NICOTINE 10 MG CARTRIDGE (INHALER) IH PRN (22:21)
[2022-06-01] MEDS: PRENATAL VITAMINS W/ FOLIC ACID TABLET (FP) PO SCH (10:01)
[2022-06-01] MEDS: BICTEGRAV/EMTRICIT/TENOFOV (BIKTARVY) 50-200-25 MG TABLET PO SCH (10:01)
[2022-06-01] MEDS: NICOTINE 14 MG/24 HOURS TOPICAL PATCH TD SCH (10:02)
[2022-06-01] MEDS ORDERED: BUPRENORPHINE/NALOXONE 8 MG/2 MG FILM PACKET SL ONE (13:15)
[2022-06-01] MEDS: SENNOSIDES 8.6MG TABLET (FP) PO SCH (22:02)
[2022-06-01] MEDS: THIAMINE HCL 100 MG TABLET (FP) PO SCH (22:02)
[2022-06-01] MEDS: MELATONIN 5 MG TABLETS PO SCH (22:02)
[2022-06-02] MEDS: PRENATAL VITAMINS W/ FOLIC ACID TABLET (FP) PO SCH (09:38)
[2022-06-02] MEDS: PARoxetine HCL 10 MG TABLET PO SCH (09:39)
[2022-06-02] MEDS: NICOTINE 14 MG/24 HOURS TOPICAL PATCH TD SCH (09:39)
[2022-06-02] MEDS: ARIPiprazole 15 MG TABLET PO SCH (09:39)
[2022-06-02] MEDS: BICTEGRAV/EMTRICIT/TENOFOV (BIKTARVY) 50-200-25 MG TABLET PO SCH (09:39)
[2022-06-02] MEDS: BUPRENORPHINE/NALOXONE 8 MG/2 MG FILM PACKET SL SCH ×2 (10:19→21:43)
[2022-06-02] MEDS: MELATONIN 5 MG TABLETS PO SCH (21:42)
[2022-06-02] MEDS: SENNOSIDES 8.6MG TABLET (FP) PO SCH (21:42)
[2022-06-02] MEDS: THIAMINE HCL 100 MG TABLET (FP) PO SCH (21:43)
[2022-06-03] MEDS: BICTEGRAV/EMTRICIT/TENOFOV (BIKTARVY) 50-200-25 MG TABLET PO SCH (10:15)
[2022-06-03] MEDS: PRENATAL VITAMINS W/ FOLIC ACID TABLET (FP) PO SCH (10:15)
[2022-06-03] MEDS: ARIPiprazole 15 MG TABLET PO SCH (10:16)
[2022-06-03] MEDS: PARoxetine HCL 10 MG TABLET PO SCH (10:16)
[2022-06-03] MEDS: NICOTINE 14 MG/24 HOURS TOPICAL PATCH TD SCH (10:17)
[2022-06-03] MEDS: ACETAMINOPHEN 325 MG TABLET (FP) PO PRN (10:17)
[2022-06-03] MEDS: BUPRENORPHINE/NALOXONE 8 MG/2 MG FILM PACKET SL SCH ×2 (10:17→21:53)
[2022-06-03] MEDS: IBUPROFEN 400 MG TABLET (FP) PO PRN (20:45)
[2022-06-03] MEDS: THIAMINE HCL 100 MG TABLET (FP) PO SCH (21:52)
[2022-06-03] MEDS: SENNOSIDES 8.6MG TABLET (FP) PO SCH (21:52)
[2022-06-03] MEDS: MELATONIN 5 MG TABLETS PO SCH (21:53)
[2022-06-04] MEDS: ACETAMINOPHEN 325 MG TABLET (FP) PO PRN (09:13)
[2022-06-04] MEDS: BICTEGRAV/EMTRICIT/TENOFOV (BIKTARVY) 50-200-25 MG TABLET PO SCH (09:13)
[2022-06-04] MEDS: BUPRENORPHINE/NALOXONE 8 MG/2 MG FILM PACKET SL SCH ×2 (09:13→21:38)
[2022-06-04] MEDS: PRENATAL VITAMINS W/ FOLIC ACID TABLET (FP) PO SCH (09:14)
[2022-06-04] MEDS: NICOTINE 14 MG/24 HOURS TOPICAL PATCH TD SCH (09:14)
[2022-06-04] MEDS: PARoxetine HCL 10 MG TABLET PO SCH (09:15)
[2022-06-04] MEDS: ARIPiprazole 15 MG TABLET PO SCH (09:22)
[2022-06-04] MEDS: IBUPROFEN 400 MG TABLET (FP) PO PRN (17:53)
[2022-06-04] MEDS: MELATONIN 5 MG TABLETS PO SCH (21:35)
[2022-06-04] MEDS: SENNOSIDES 8.6MG TABLET (FP) PO SCH (21:36)
[2022-06-04] MEDS: THIAMINE HCL 100 MG TABLET (FP) PO SCH (21:41)
[2022-06-05] MEDS: NICOTINE 10 MG CARTRIDGE (INHALER) IH PRN (06:37)
[2022-06-05] MEDS: ACETAMINOPHEN 325 MG TABLET (FP) PO PRN ×2 (07:52→12:01)
[2022-06-05] MEDS: NICOTINE 14 MG/24 HOURS TOPICAL PATCH TD SCH (10:10)
[2022-06-05] MEDS: PRENATAL VITAMINS W/ FOLIC ACID TABLET (FP) PO SCH (10:11)
[2022-06-05] MEDS: ARIPiprazole 15 MG TABLET PO SCH (10:11)
[2022-06-05] MEDS: PARoxetine HCL 10 MG TABLET PO SCH (10:11)
[2022-06-05] MEDS: BUPRENORPHINE/NALOXONE 8 MG/2 MG FILM PACKET SL SCH ×2 (10:13→21:44)
[2022-06-05] MEDS: BICTEGRAV/EMTRICIT/TENOFOV (BIKTARVY) 50-200-25 MG TABLET PO SCH (10:46)
[2022-06-05] MEDS: THIAMINE HCL 100 MG TABLET (FP) PO SCH (21:45)
[2022-06-05] MEDS: MELATONIN 5 MG TABLETS PO SCH (21:45)
[2022-06-05] MEDS: SENNOSIDES 8.6MG TABLET (FP) PO SCH (21:45)
[2022-06-06] MEDS: ACETAMINOPHEN 325 MG TABLET (FP) PO PRN ×2 (06:01→21:43)
[2022-06-06] MEDS: PARoxetine HCL 10 MG TABLET PO SCH (09:45)
[2022-06-06] MEDS: ARIPiprazole 15 MG TABLET PO SCH (09:45)
[2022-06-06] MEDS: NICOTINE 14 MG/24 HOURS TOPICAL PATCH TD SCH (09:45)
[2022-06-06] MEDS: BICTEGRAV/EMTRICIT/TENOFOV (BIKTARVY) 50-200-25 MG TABLET PO SCH (09:45)
[2022-06-06] MEDS: PRENATAL VITAMINS W/ FOLIC ACID TABLET (FP) PO SCH (09:45)
[2022-06-06] MEDS: BUPRENORPHINE/NALOXONE 8 MG/2 MG FILM PACKET SL SCH ×2 (09:45→21:41)
[2022-06-06] MEDS: IBUPROFEN 400 MG TABLET (FP) PO PRN (17:44)
[2022-06-06] MEDS: MELATONIN 5 MG TABLETS PO SCH (21:40)
[2022-06-06] MEDS: SENNOSIDES 8.6MG TABLET (FP) PO SCH (21:40)
[2022-06-06] MEDS: THIAMINE HCL 100 MG TABLET (FP) PO SCH (21:41)
[2022-06-07] MEDS: ARIPiprazole 15 MG TABLET PO SCH (10:02)
[2022-06-07] MEDS: BICTEGRAV/EMTRICIT/TENOFOV (BIKTARVY) 50-200-25 MG TABLET PO SCH (10:02)
[2022-06-07] MEDS: PARoxetine HCL 10 MG TABLET PO SCH (10:03)
[2022-06-07] MEDS: NICOTINE 14 MG/24 HOURS TOPICAL PATCH TD SCH (10:03)
[2022-06-07] MEDS: BUPRENORPHINE/NALOXONE 8 MG/2 MG FILM PACKET SL SCH ×2 (10:04→21:40)
[2022-06-07] MEDS: PRENATAL VITAMINS W/ FOLIC ACID TABLET (FP) PO SCH (10:04)
[2022-06-07] MEDS: SENNOSIDES 8.6MG TABLET (FP) PO SCH (21:39)
[2022-06-07] MEDS: MELATONIN 5 MG TABLETS PO SCH (21:39)
[2022-06-07] MEDS: THIAMINE HCL 100 MG TABLET (FP) PO SCH (21:40)
[2022-06-07] MEDS: ACETAMINOPHEN 325 MG TABLET (FP) PO PRN (21:41)
[2022-06-08] MEDS: ACETAMINOPHEN 325 MG TABLET (FP) PO PRN ×2 (10:36→21:46)
[2022-06-08] MEDS: ARIPiprazole 15 MG TABLET PO SCH (10:37)
[2022-06-08] MEDS: NICOTINE 14 MG/24 HOURS TOPICAL PATCH TD SCH (10:38)
[2022-06-08] MEDS: BICTEGRAV/EMTRICIT/TENOFOV (BIKTARVY) 50-200-25 MG TABLET PO SCH (10:38)
[2022-06-08] MEDS: PARoxetine HCL 10 MG TABLET PO SCH (10:41)
[2022-06-08] MEDS: PRENATAL VITAMINS W/ FOLIC ACID TABLET (FP) PO SCH (10:42)
[2022-06-08] MEDS: BUPRENORPHINE/NALOXONE 8 MG/2 MG FILM PACKET SL SCH ×2 (10:43→21:47)
[2022-06-08] MEDS: NICOTINE 10 MG CARTRIDGE (INHALER) IH PRN (10:44)
[2022-06-08] MEDS: SENNOSIDES 8.6MG TABLET (FP) PO SCH (21:44)
[2022-06-08] MEDS: THIAMINE HCL 100 MG TABLET (FP) PO SCH (21:44)
[2022-06-08] MEDS: MELATONIN 5 MG TABLETS PO SCH (21:44)
[2022-06-09] MEDS: BICTEGRAV/EMTRICIT/TENOFOV (BIKTARVY) 50-200-25 MG TABLET PO SCH (11:04)
[2022-06-09] MEDS: PRENATAL VITAMINS W/ FOLIC ACID TABLET (FP) PO SCH (11:04)
[2022-06-09] MEDS ORDERED: BUPRENORPHINE/NALOXONE 8 MG/2 MG FILM PACKET SL ONE (11:07)
[2022-06-09] MEDS: ARIPiprazole 15 MG TABLET PO SCH (11:17)
[2022-06-09] MEDS: PARoxetine HCL 10 MG TABLET PO SCH (11:17)
[2022-06-09] MEDS: NICOTINE 14 MG/24 HOURS TOPICAL PATCH TD SCH (11:18)
[2022-06-09] MEDS: ACETAMINOPHEN 325 MG TABLET (FP) PO PRN (13:03)
[2022-06-09] MEDS: NICOTINE 10 MG CARTRIDGE (INHALER) IH PRN (15:58)
[2022-06-09] MEDS: MAGNESIUM HYDROX 2400MG/30ML ORAL SUSPENSION 30 ML CUP PO PRN (18:42)
[2022-06-09] MEDS: MELATONIN 5 MG TABLETS PO SCH (21:34)
[2022-06-09] MEDS: SENNOSIDES 8.6MG TABLET (FP) PO SCH (21:34)
[2022-06-09] MEDS: THIAMINE HCL 100 MG TABLET (FP) PO SCH (21:34)
[2022-06-09] MEDS: BUPRENORPHINE/NALOXONE 8 MG/2 MG FILM PACKET SL SCH (21:46)
[2022-06-10] MEDS: NICOTINE 10 MG CARTRIDGE (INHALER) IH PRN (09:41)
[2022-06-10] MEDS: PARoxetine HCL 10 MG TABLET PO SCH (09:42)
[2022-06-10] MEDS: ARIPiprazole 15 MG TABLET PO SCH (09:42)
[2022-06-10] MEDS: BUPRENORPHINE/NALOXONE 8 MG/2 MG FILM PACKET SL SCH ×2 (09:42→21:37)
[2022-06-10] MEDS: PRENATAL VITAMINS W/ FOLIC ACID TABLET (FP) PO SCH (09:42)
[2022-06-10] MEDS: BICTEGRAV/EMTRICIT/TENOFOV (BIKTARVY) 50-200-25 MG TABLET PO SCH (09:42)
[2022-06-10] MEDS: NICOTINE 14 MG/24 HOURS TOPICAL PATCH TD SCH (09:42)
[2022-06-10] MEDS: MAGNESIUM HYDROX 2400MG/30ML ORAL SUSPENSION 30 ML CUP PO PRN (16:06)
[2022-06-10] MEDS: SENNOSIDES 8.6MG TABLET (FP) PO SCH (21:36)
[2022-06-10] MEDS: MELATONIN 5 MG TABLETS PO SCH (21:36)
[2022-06-10] MEDS: THIAMINE HCL 100 MG TABLET (FP) PO SCH (21:36)
[2022-06-11] MEDS: ARIPiprazole 15 MG TABLET PO SCH (09:42)
[2022-06-11] MEDS: PRENATAL VITAMINS W/ FOLIC ACID TABLET (FP) PO SCH (09:42)
[2022-06-11] MEDS: PARoxetine HCL 10 MG TABLET PO SCH (09:43)
[2022-06-11] MEDS: MAGNESIUM HYDROX 2400MG/30ML ORAL SUSPENSION 30 ML CUP PO PRN (09:43)
[2022-06-11] MEDS: IBUPROFEN 400 MG TABLET (FP) PO PRN (09:43)
[2022-06-11] MEDS: BUPRENORPHINE/NALOXONE 8 MG/2 MG FILM PACKET SL SCH ×3 (09:43→21:44)
[2022-06-11] MEDS: BICTEGRAV/EMTRICIT/TENOFOV (BIKTARVY) 50-200-25 MG TABLET PO SCH (09:43)
[2022-06-11] MEDS: NICOTINE 14 MG/24 HOURS TOPICAL PATCH TD SCH (09:47)
[2022-06-11] MEDS ORDERED: SODIUM PHOSPHATE/NA BIPHOS 133 ML ENEMA RC ONE (12:36)
[2022-06-11] MEDS: NICOTINE 10 MG CARTRIDGE (INHALER) IH PRN (14:47)
[2022-06-11] MEDS: SENNOSIDES 8.6MG TABLET (FP) PO SCH (21:43)
[2022-06-11] MEDS: MELATONIN 5 MG TABLETS PO SCH (21:43)
[2022-06-11] MEDS: THIAMINE HCL 100 MG TABLET (FP) PO SCH (21:44)
[2022-06-12 07:24] VITALS: BP 97/62; PULSE 62; RESP 18; TEMP 96.2
[2022-06-12] MEDS: BICTEGRAV/EMTRICIT/TENOFOV (BIKTARVY) 50-200-25 MG TABLET PO SCH (09:25)
[2022-06-12] MEDS: BUPRENORPHINE/NALOXONE 8 MG/2 MG FILM PACKET SL SCH (09:25)
[2022-06-12] MEDS: ARIPiprazole 15 MG TABLET PO SCH (09:25)
[2022-06-12] MEDS: PRENATAL VITAMINS W/ FOLIC ACID TABLET (FP) PO SCH (09:25)
[2022-06-12] MEDS: NICOTINE 14 MG/24 HOURS TOPICAL PATCH TD SCH (09:25)
[2022-06-12] MEDS: PARoxetine HCL 10 MG TABLET PO SCH (09:25)
[2022-06-12] MEDS: NICOTINE 10 MG CARTRIDGE (INHALER) IH PRN (09:52)
== END 2022-06-12 10:10 | disposition home or self-care (01) | DRG 772 ==
LOC: YASAS 12:03 → Y5N 17:02
PROVIDERS: ADMIT Allergy & Immunology; ATTEND Allergy & Immunology
PROC: HZ42ZZZ Group Counseling for Substance Abuse Treatment, Cognitive-Behavioral (ICD-10-PCS; principal; 2022-05-31)
DX: F10.20 Alcohol dependence, uncomplicated (principal); F11.20 Opioid dependence, uncomplicated; F14.20 Cocaine dependence, uncomplicated; F31.9 Bipolar disorder, unspecified; F19.282 Other psychoactive substance dependence with psychoactive substance-induced sleep disorder; F25.9 Schizoaffective disorder, unspecified; F43.10 Post-traumatic stress disorder, unspecified; F41.9 Anxiety disorder, unspecified; Z21 Asymptomatic human immunodeficiency virus [HIV] infection status; J45.20 Mild intermittent asthma, uncomplicated; K59.01 Slow transit constipation; M17.0 Bilateral primary osteoarthritis of knee; R63.4 Abnormal weight loss; Z68.1 Body mass index [BMI] 19.9 or less, adult; Z88.8 Allergy status to other drugs, medicaments and biological substances
CPT/HCPCS: 36415; 80053; 85027; 86780; 86803; 87811; 93005; 93010; C9803-CS; U0003; U0005

== ENCOUNTER 2022-08-04 13:26 | Inpatient (IN) | payer OTHER ==
[2022-08-04 14:50] VITALS: BMI 16.8
[2022-08-04] MEDS ORDERED: ACETAMINOPHEN 325 MG TABLET (FP) PO PRN ×2 (15:14)
[2022-08-04] MEDS ORDERED: BENZOCAINE/MENTHOL (CHLORASEPTIC ) LOZENGE MM PRN (15:14)
[2022-08-04] MEDS ORDERED: ONDANSETRON *ODT* 4 MG TABLET SL PRN (15:14)
[2022-08-04] MEDS ORDERED: guaiFENesin 600 MG TABLET.ER (FP) PO PRN (15:14)
[2022-08-04] MEDS ORDERED: BISMUTH SUBSALICYLATE 524 MG/30 ML PO PRN (15:14)
[2022-08-04] MEDS ORDERED: NALOXONE HCL (KLOXXADO) 8 MG SPRAY NS PRN (15:14)
[2022-08-04] MEDS ORDERED: MAGNESIUM HYDROX 2400MG/30ML ORAL SUSPENSION 30 ML CUP PO PRN (15:14)
[2022-08-04] MEDS ORDERED: NICOTINE POLACRILEX 2 MG GUM BUC PRN (15:14)
[2022-08-04] MEDS ORDERED: DICYCLOMINE HCL 10 MG CAPSULE PO PRN (15:14)
[2022-08-04] MEDS ORDERED: LOPERAMIDE HCL 2 MG CAPSULE PO PRN (15:14)
[2022-08-04] MEDS ORDERED: POLYETHYLENE GLYCOL (HEALTHYLAX) 3350 17 GM PACKET PO PRN (15:14)
[2022-08-04] MEDS ORDERED: P-EPHED 60MG/TRIPROLIDI 2.5MG TABLET PO PRN (15:14)
[2022-08-04] MEDS ORDERED: NALOXONE HCL 0.4 MG/ML VIAL IM PRN (15:14)
[2022-08-04] MEDS ORDERED: MAG HYDROX/AL HYDROX/SIMETH 30 ML UNIT-DOSE CUP PO PRN (15:14)
[2022-08-04] MEDS ORDERED: IBUPROFEN 600 MG TABLET (FP) PO PRN (15:14)
[2022-08-04] MEDS ORDERED: IBUPROFEN 400 MG TABLET (FP) PO PRN (15:14)
[2022-08-04] MEDS ORDERED: hydrOXYzine PAMOATE 25 MG CAPSULE (FP) PO PRN (15:14)
[2022-08-04] MEDS ORDERED: BENZONATATE 200 MG CAPSULE PO PRN (15:14)
[2022-08-04] MEDS: THIAMINE HCL 100 MG TABLET (FP) PO SCH (22:26)
[2022-08-04] MEDS: MELATONIN 5 MG TABLETS PO PRN (22:27)
[2022-08-04] MEDS: BACITRACIN ZINC 15 GM TUBE TOPICAL OINTMENT TP SCH (22:58)
[2022-08-05] MEDS: BACITRACIN ZINC 15 GM TUBE TOPICAL OINTMENT TP SCH ×3 (10:28→23:59)
[2022-08-05] MEDS: PRENATAL VITAMINS W/ FOLIC ACID TABLET (FP) PO SCH (10:28)
[2022-08-05 12:25] LABS: HEMATOCRIT 34.7 % (32.4-45.2); HEMOGLOBIN 11.8 GM/dL (10.7-15.3); MCH 30.3 pg (25.7-33.7); MCHC 33.9 g/dl (32.0-36.0); MEAN CELL VOLUME 89.4 fl (80-96); MEAN PLT VOLUME 8.7 fl (7.5-11.1); PLATELET COUNT 163 10^3/uL (134-434); RBC 3.89 M/mm3 (3.60-5.2); RDW 14.7 % (11.6-15.6); WHITE BLOOD COUNT 3.5 K/mm3 (4.0-10.0)
[2022-08-05 12:28] LABS: POTASSIUM 3.8 mmol/L (3.5-5.1)
[2022-08-05 12:34] LABS: CALCIUM 8.9 mg/dL (8.5-10.1)
[2022-08-05 12:35] LABS: ALBUMIN 3.1 g/dl (3.4-5.0); BLOOD UREA NITROGEN 14.1 mg/dL (7-18)
[2022-08-05 12:38] LABS: CREATININE 0.9 mg/dL (0.55-1.3)
[2022-08-05 12:39] LABS: TOT PROT 6.2 g/dl (6.4-8.2)
[2022-08-05 12:40] LABS: BILIRUBIN,TOTAL 0.4 mg/dL (0.2-1)
[2022-08-05] MEDS: LORazepam 0.5 MG TABLET PO PRN ×2 (12:58→23:58)
[2022-08-05] MEDS: LORazepam 1 MG TABLET PO SCH ×3 (13:01→22:55)
[2022-08-05] MEDS: THIAMINE HCL 100 MG TABLET (FP) PO SCH ×2 (22:55→23:57)
[2022-08-06] MEDS: LORazepam 0.5 MG TABLET PO SCH ×4 (06:02→22:46)
[2022-08-06] MEDS: PRENATAL VITAMINS W/ FOLIC ACID TABLET (FP) PO SCH (10:17)
[2022-08-06] MEDS: BACITRACIN ZINC 15 GM TUBE TOPICAL OINTMENT TP SCH ×2 (10:18→22:45)
[2022-08-06] MEDS: ARIPiprazole 10 MG TABLET PO SCH (10:18)
[2022-08-06] MEDS: PARoxetine HCL 20 MG TABLET PO SCH (10:18)
[2022-08-06] MEDS: BUPRENORPHINE/NALOXONE 8 MG/2 MG FILM PACKET SL SCH (11:01)
[2022-08-06] MEDS: BICTEGRAV/EMTRICIT/TENOFOV (BIKTARVY) 50-200-25 MG TABLET PO SCH (11:01)
[2022-08-06] MEDS: THIAMINE HCL 100 MG TABLET (FP) PO SCH (22:46)
[2022-08-07] MEDS ORDERED: LORazepam 0.5 MG TABLET PO ONE (05:00)
[2022-08-07] MEDS: PARoxetine HCL 20 MG TABLET PO SCH (09:37)
[2022-08-07] MEDS: ARIPiprazole 10 MG TABLET PO SCH (09:37)
[2022-08-07] MEDS: BICTEGRAV/EMTRICIT/TENOFOV (BIKTARVY) 50-200-25 MG TABLET PO SCH (09:37)
[2022-08-07] MEDS: BUPRENORPHINE/NALOXONE 8 MG/2 MG FILM PACKET SL SCH (09:38)
[2022-08-07] MEDS: PRENATAL VITAMINS W/ FOLIC ACID TABLET (FP) PO SCH (09:38)
[2022-08-07] MEDS: BACITRACIN ZINC 15 GM TUBE TOPICAL OINTMENT TP SCH ×2 (09:38→22:17)
[2022-08-07] MEDS: THIAMINE HCL 100 MG TABLET (FP) PO SCH (22:17)
[2022-08-07] MEDS: MELATONIN 5 MG TABLETS PO PRN (22:17)
[2022-08-08 09:32] VITALS: RESP 18
[2022-08-08] MEDS: ARIPiprazole 10 MG TABLET PO SCH (10:14)
[2022-08-08] MEDS: PARoxetine HCL 20 MG TABLET PO SCH (10:14)
[2022-08-08] MEDS: PRENATAL VITAMINS W/ FOLIC ACID TABLET (FP) PO SCH (10:14)
[2022-08-08] MEDS: BACITRACIN ZINC 15 GM TUBE TOPICAL OINTMENT TP SCH (10:15)
[2022-08-08] MEDS: BICTEGRAV/EMTRICIT/TENOFOV (BIKTARVY) 50-200-25 MG TABLET PO SCH (10:15)
[2022-08-08] MEDS: BUPRENORPHINE/NALOXONE 8 MG/2 MG FILM PACKET SL SCH (10:15)
[2022-08-08] MEDS ORDERED: NICOTINE 10 MG CARTRIDGE (INHALER) IH SCH (15:30)
[2022-08-08 17:31] VITALS: BP 92/64; PULSE 73; TEMP 96.9
== END 2022-08-08 17:46 | disposition other institution (70) | DRG 773 ==
LOC: YASAS 13:26 → Y3N 17:10
PROVIDERS: ADMIT Allergy & Immunology; ATTEND Surgery
PROC: HZ2ZZZZ Detoxification Services for Substance Abuse Treatment (ICD-10-PCS; principal; 2022-08-04)
DX: F11.23 Opioid dependence with withdrawal (principal); F10.230 Alcohol dependence with withdrawal, uncomplicated; F14.20 Cocaine dependence, uncomplicated; F17.210 Nicotine dependence, cigarettes, uncomplicated; F31.9 Bipolar disorder, unspecified; F41.9 Anxiety disorder, unspecified; F43.10 Post-traumatic stress disorder, unspecified; Z21 Asymptomatic human immunodeficiency virus [HIV] infection status; G47.00 Insomnia, unspecified; Z62.810 Personal history of physical and sexual abuse in childhood; Z88.8 Allergy status to other drugs, medicaments and biological substances; Z91.013 Allergy to seafood
CPT/HCPCS: 36415; 80053; 85027; 86780; C9803-CS; U0003; U0005

== ENCOUNTER 2022-08-08 18:09 | Inpatient (IN) | payer OTHER ==
[2022-08-08] MEDS ORDERED: ALBUTEROL SO4 HFA INHALER IH PRN (20:17)
[2022-08-08] MEDS ORDERED: BENZOCAINE/MENTHOL (CHLORASEPTIC ) LOZENGE MM PRN (20:19)
[2022-08-08] MEDS ORDERED: BENZONATATE 200 MG CAPSULE PO PRN (20:19)
[2022-08-08] MEDS ORDERED: ACETAMINOPHEN 325 MG TABLET (FP) PO PRN (20:19)
[2022-08-08] MEDS ORDERED: hydrOXYzine PAMOATE 25 MG CAPSULE (FP) PO PRN (20:19)
[2022-08-08] MEDS ORDERED: POLYETHYLENE GLYCOL (HEALTHYLAX) 3350 17 GM PACKET PO PRN (20:19)
[2022-08-08] MEDS ORDERED: NALOXONE HCL (KLOXXADO) 8 MG SPRAY NS PRN (20:19)
[2022-08-08] MEDS ORDERED: NALOXONE HCL 0.4 MG/ML VIAL IVPUSH PRN (20:19)
[2022-08-08] MEDS ORDERED: AMMONIUM LACTATE 12% LOTION 225 GM BOTTLE TP PRN (20:19)
[2022-08-08] MEDS ORDERED: NICOTINE POLACRILEX 2 MG GUM BUC PRN (20:19)
[2022-08-08] MEDS ORDERED: LOPERAMIDE HCL 2 MG CAPSULE PO PRN (20:19)
[2022-08-08] MEDS ORDERED: MAG HYDROX/AL HYDROX/SIMETH 30 ML UNIT-DOSE CUP PO PRN (20:19)
[2022-08-08] MEDS ORDERED: guaiFENesin 600 MG TABLET.ER (FP) PO PRN (20:19)
[2022-08-08] MEDS ORDERED: COLLOIDAL OATMEAL 1 BAR EACH TP PRN (20:19)
[2022-08-08] MEDS: MELATONIN 5 MG TABLETS PO SCH (21:31)
[2022-08-08] MEDS: THIAMINE HCL 100 MG TABLET (FP) PO SCH (21:31)
[2022-08-09] MEDS ORDERED: BUPRENORPHINE/NALOXONE 8 MG/2 MG FILM PACKET SL SCH (10:00)
[2022-08-09] MEDS ORDERED: ARIPiprazole 15 MG TABLET PO SCH (10:00)
[2022-08-09] MEDS ORDERED: PARoxetine HCL 30 MG TABLET PO SCH (10:00)
[2022-08-09] MEDS: BICTEGRAV/EMTRICIT/TENOFOV (BIKTARVY) 50-200-25 MG TABLET PO SCH (10:18)
[2022-08-09] MEDS: PRENATAL VITAMINS W/ FOLIC ACID TABLET (FP) PO SCH (10:18)
[2022-08-09] MEDS: NICOTINE 21 MG/24 HOURS TOPICAL PATCH TD SCH (10:19)
[2022-08-09] MEDS ORDERED: PARoxetine HCL 20 MG TABLET PO SCH (10:25)
[2022-08-09] MEDS: PARoxetine HCL 20 MG TABLET PO SCH (10:53)
[2022-08-09] MEDS: BUPRENORPHINE/NALOXONE 8 MG/2 MG FILM PACKET SL SCH (10:53)
[2022-08-09] MEDS: ARIPiprazole 10 MG TABLET PO SCH (10:53)
[2022-08-09] MEDS: IBUPROFEN 600 MG TABLET (FP) PO PRN (11:56)
[2022-08-09] MEDS: THIAMINE HCL 100 MG TABLET (FP) PO SCH (21:30)
[2022-08-09] MEDS: MELATONIN 5 MG TABLETS PO SCH (21:30)
[2022-08-10] MEDS: IBUPROFEN 400 MG TABLET (FP) PO PRN ×2 (06:30→12:38)
[2022-08-10] MEDS: PRENATAL VITAMINS W/ FOLIC ACID TABLET (FP) PO SCH (09:33)
[2022-08-10] MEDS: BUPRENORPHINE/NALOXONE 8 MG/2 MG FILM PACKET SL SCH (09:34)
[2022-08-10] MEDS: PARoxetine HCL 20 MG TABLET PO SCH (09:34)
[2022-08-10] MEDS: ARIPiprazole 10 MG TABLET PO SCH (09:34)
[2022-08-10] MEDS: BICTEGRAV/EMTRICIT/TENOFOV (BIKTARVY) 50-200-25 MG TABLET PO SCH (09:34)
[2022-08-10] MEDS: NICOTINE 21 MG/24 HOURS TOPICAL PATCH TD SCH (09:35)
[2022-08-10] MEDS: NICOTINE 10 MG CARTRIDGE (INHALER) IH SCH (10:38)
[2022-08-10] MEDS: MAGNESIUM HYDROX 2400MG/30ML ORAL SUSPENSION 30 ML CUP PO PRN (15:31)
[2022-08-10] MEDS: THIAMINE HCL 100 MG TABLET (FP) PO SCH (21:51)
[2022-08-10] MEDS: MELATONIN 5 MG TABLETS PO SCH (21:51)
[2022-08-11] MEDS: IBUPROFEN 600 MG TABLET (FP) PO PRN (07:56)
[2022-08-11] MEDS: PARoxetine HCL 20 MG TABLET PO SCH (10:39)
[2022-08-11] MEDS: BICTEGRAV/EMTRICIT/TENOFOV (BIKTARVY) 50-200-25 MG TABLET PO SCH (10:39)
[2022-08-11] MEDS: ARIPiprazole 10 MG TABLET PO SCH (10:39)
[2022-08-11] MEDS: NICOTINE 21 MG/24 HOURS TOPICAL PATCH TD SCH (10:39)
[2022-08-11] MEDS: PRENATAL VITAMINS W/ FOLIC ACID TABLET (FP) PO SCH (10:39)
[2022-08-11] MEDS: NICOTINE 10 MG CARTRIDGE (INHALER) IH SCH (10:39)
[2022-08-11] MEDS: BUPRENORPHINE/NALOXONE 8 MG/2 MG FILM PACKET SL SCH (10:39)
[2022-08-11] MEDS: MAGNESIUM HYDROX 2400MG/30ML ORAL SUSPENSION 30 ML CUP PO PRN (18:08)
[2022-08-11] MEDS: MELATONIN 5 MG TABLETS PO SCH (21:31)
[2022-08-11] MEDS: THIAMINE HCL 100 MG TABLET (FP) PO SCH (21:31)
[2022-08-11] MEDS: BACITRACIN 0.9 GM PACKET TP SCH (21:33)
[2022-08-11] MEDS: IBUPROFEN 400 MG TABLET (FP) PO PRN (21:33)
[2022-08-12] MEDS: BICTEGRAV/EMTRICIT/TENOFOV (BIKTARVY) 50-200-25 MG TABLET PO SCH (10:21)
[2022-08-12] MEDS: ARIPiprazole 10 MG TABLET PO SCH (10:21)
[2022-08-12] MEDS: PRENATAL VITAMINS W/ FOLIC ACID TABLET (FP) PO SCH (10:21)
[2022-08-12] MEDS: PARoxetine HCL 20 MG TABLET PO SCH (10:21)
[2022-08-12] MEDS: BUPRENORPHINE/NALOXONE 8 MG/2 MG FILM PACKET SL SCH (10:21)
[2022-08-12] MEDS: NICOTINE 10 MG CARTRIDGE (INHALER) IH SCH ×2 (10:22→15:44)
[2022-08-12] MEDS: NICOTINE 21 MG/24 HOURS TOPICAL PATCH TD SCH (10:22)
[2022-08-12] MEDS: BACITRACIN 0.9 GM PACKET TP SCH ×2 (10:24→21:41)
[2022-08-12] MEDS: IBUPROFEN 400 MG TABLET (FP) PO PRN (16:27)
[2022-08-12] MEDS: MELATONIN 5 MG TABLETS PO SCH (21:35)
[2022-08-12] MEDS: THIAMINE HCL 100 MG TABLET (FP) PO SCH (21:36)
[2022-08-13] MEDS: PRENATAL VITAMINS W/ FOLIC ACID TABLET (FP) PO SCH (10:09)
[2022-08-13] MEDS: BICTEGRAV/EMTRICIT/TENOFOV (BIKTARVY) 50-200-25 MG TABLET PO SCH (10:10)
[2022-08-13] MEDS: PARoxetine HCL 20 MG TABLET PO SCH (10:10)
[2022-08-13] MEDS: NICOTINE 21 MG/24 HOURS TOPICAL PATCH TD SCH (10:10)
[2022-08-13] MEDS: BUPRENORPHINE/NALOXONE 8 MG/2 MG FILM PACKET SL SCH (10:10)
[2022-08-13] MEDS: ARIPiprazole 10 MG TABLET PO SCH (10:10)
[2022-08-13] MEDS: NICOTINE 10 MG CARTRIDGE (INHALER) IH SCH (10:12)
[2022-08-13] MEDS: BACITRACIN 0.9 GM PACKET TP SCH ×2 (10:14→21:48)
[2022-08-13] MEDS: MELATONIN 5 MG TABLETS PO SCH (21:48)
[2022-08-13] MEDS: THIAMINE HCL 100 MG TABLET (FP) PO SCH (21:48)
[2022-08-13] MEDS: IBUPROFEN 400 MG TABLET (FP) PO PRN (23:57)
[2022-08-14] MEDS: PARoxetine HCL 20 MG TABLET PO SCH (09:04)
[2022-08-14] MEDS: BUPRENORPHINE/NALOXONE 8 MG/2 MG FILM PACKET SL SCH (09:04)
[2022-08-14] MEDS: ARIPiprazole 10 MG TABLET PO SCH (09:04)
[2022-08-14] MEDS: BICTEGRAV/EMTRICIT/TENOFOV (BIKTARVY) 50-200-25 MG TABLET PO SCH (09:04)
[2022-08-14] MEDS: PRENATAL VITAMINS W/ FOLIC ACID TABLET (FP) PO SCH (09:04)
[2022-08-14] MEDS: NICOTINE 21 MG/24 HOURS TOPICAL PATCH TD SCH (10:19)
[2022-08-14] MEDS: BACITRACIN 0.9 GM PACKET TP SCH ×2 (10:19→21:29)
[2022-08-14] MEDS: NICOTINE 10 MG CARTRIDGE (INHALER) IH SCH (10:20)
[2022-08-14] MEDS: THIAMINE HCL 100 MG TABLET (FP) PO SCH (21:30)
[2022-08-14] MEDS: MELATONIN 5 MG TABLETS PO SCH (21:30)
[2022-08-14] MEDS ORDERED: DOCUSATE SODIUM 100 MG CAPSULE (FP) PO SCH (22:00)
[2022-08-14] MEDS ORDERED: LACTULOSE 20 GM/30 ML UDC (FOR ORAL USE ONLY) PO ONE (22:06)
[2022-08-14] MEDS ORDERED: SIMETHICONE 80 MG TAB.CHEW (FP) PO PRN (22:10)
[2022-08-15 07:15] VITALS: BP 105/68; PULSE 65; RESP 16; TEMP 97.6
[2022-08-15] MEDS ORDERED: SODIUM PHOSPHATE/NA BIPHOS 133 ML ENEMA RC ONE (08:57)
[2022-08-15] MEDS: ARIPiprazole 10 MG TABLET PO SCH (09:44)
[2022-08-15] MEDS: NICOTINE 10 MG CARTRIDGE (INHALER) IH SCH (09:44)
[2022-08-15] MEDS: PARoxetine HCL 20 MG TABLET PO SCH (09:44)
[2022-08-15] MEDS: NICOTINE 21 MG/24 HOURS TOPICAL PATCH TD SCH (09:44)
[2022-08-15] MEDS: BICTEGRAV/EMTRICIT/TENOFOV (BIKTARVY) 50-200-25 MG TABLET PO SCH (09:44)
[2022-08-15] MEDS: BACITRACIN 0.9 GM PACKET TP SCH (09:46)
[2022-08-15] MEDS: PRENATAL VITAMINS W/ FOLIC ACID TABLET (FP) PO SCH (09:46)
[2022-08-15] MEDS ORDERED: LACTULOSE 20 GM/30 ML UDC (FOR ORAL USE ONLY) PO SCH (10:00)
[2022-08-15] MEDS ORDERED: BUPRENORPHINE/NALOXONE 8 MG/2 MG FILM PACKET SL SCH (11:00)
== END 2022-08-15 12:30 | disposition home or self-care (01) | DRG 772 ==
LOC: YASAS 18:09 → Y5N 18:12
PROVIDERS: ADMIT Allergy & Immunology; ATTEND Psychiatry & Neurology Pain Medicine
PROC: HZ42ZZZ Group Counseling for Substance Abuse Treatment, Cognitive-Behavioral (ICD-10-PCS; principal; 2022-08-08)
DX: F14.20 Cocaine dependence, uncomplicated (principal); F11.20 Opioid dependence, uncomplicated; F10.20 Alcohol dependence, uncomplicated; F17.210 Nicotine dependence, cigarettes, uncomplicated; F19.282 Other psychoactive substance dependence with psychoactive substance-induced sleep disorder; F31.9 Bipolar disorder, unspecified; F41.8 Other specified anxiety disorders; Z21 Asymptomatic human immunodeficiency virus [HIV] infection status; F25.9 Schizoaffective disorder, unspecified; M17.0 Bilateral primary osteoarthritis of knee; K59.01 Slow transit constipation; R63.4 Abnormal weight loss; Z68.1 Body mass index [BMI] 19.9 or less, adult; Z88.8 Allergy status to other drugs, medicaments and biological substances
CPT/HCPCS: 36415; 86803; 93005; 93010